=== PATIENT | male | born 1950 | race Caucasian/White ===

== ENCOUNTER 2017-01-11 11:47 | Inpatient (IN) | payer OTHER ==
[2017-01-11] MEDS ORDERED: ASPIRIN PO STA (12:32)
[2017-01-11] MEDS ORDERED: CARDIZEM IV ONE (12:33)
[2017-01-11 12:38] LABS: MANUAL DIFF NEEDED? NO
--- NOTE | 2017-01-11 12:39 | EKG Report ---
Test Performed on : 01/11/2017 12:27:29 PM Test Reason : CHEST PAIN Blood Pressure : / mmHG Vent. Rate : 131 BPM Atrial Rate : 136 BPM P-R Int : 000 ms QRS Dur : 092 ms QT Int : 330 ms P-R-T Axes : 000 032 032 degrees QTc Int : 487 ms Atrial fibrillation. with rapid ventricular response. Abnormal ECG When compared with ECG of 20-OCT-2016 05:37, Atrial fibrillation. has replaced Electronic atrial pacemaker Vent. rate has increased BY 71 BPM Unconfirmed Result
[2017-01-11 12:41] LABS: BASO% 0.4 % (0.0-0.8); EOS# 0.06 X1000 (0.0-0.7); EOS% 1.1 % (0.0-10.0); HEMATOCRIT 45.6 % (42.0-52.0); HEMOGLOBIN 14.8 g/dL (14.0-18.0); IMM GRAN# 0.01 X1000 (0.0-0.04); IMM GRAN% 0.2 % (0.0-0.5); LYMPH# 1.51 X1000 (1.2-3.4); LYMPH% 26.8 % (20.5-51.1); MCH 24.8 PG (27-31); MCHC 32.5 g/dL (33-37); MCV 76.4 FL (81-99); MONO# 0.59 X1000 (0.11-0.59); MONO% 10.5 % (1.7-9.3); MPV 9.9 FL (7.4-10.4); PLT 197 X1000 (130-400); RBC 5.97 XMIL (4.7-6.1)
[2017-01-11] MEDS ORDERED: NS 1,000 ML ONE (12:43)
[2017-01-11] MEDS ORDERED: NS 500 ML IV ONE ×2 (12:57→13:27)
[2017-01-11 12:59] LABS: AGAP 12; ALBUMIN 4.4 g/dL (3.5-5.0); ALKALINE PHOSPHATASE 86 U/L (32-122); BUN 7 mg/dL (8-22); CALCIUM 9.6 mg/dL (8.8-10.2); CHLORIDE 99 mmol/L (98-107); CK PROFILE 140 U/L (24-204); COSMO 281; GOT 24 U/L (10-34); GPT 19 U/L (10-44); POTASSIUM 3.2 mmol/L (3.5-5.1); SODIUM 140 mmol/L (136-145); TCO2 30 mmol/L (25-35); TOTAL PROTEIN 6.9 g/dL (6.3-8.3)
[2017-01-11] MEDS ORDERED: DUONEB (A & A) ONE (13:01)
[2017-01-11 13:03] LABS: INR 0.99 (0.86-1.15); PROTIME 13.4 Seconds (12.1-15.5)
[2017-01-11 13:04] LABS: PTT PL 30.7 Seconds (22.6-43.9)
--- NOTE | 2017-01-11 13:16 | PROVIDER DOCUMENTATION ---
HPI-Respiratory General - General Chief Complaint: Shortness of Breath Stated Complaint: SOB Time Seen by Provider: 01/11/17 12:32 Source: patient Allergies/Adverse Reactions: Patient Allergies Allergy/AdvReac Type Severity Reaction Status Date / Time Penicillins Allergy Mild RASH Verified 10/20/16 05:28 codeine Allergy NAUSEA/VOMI Verified 10/20/16 05:28 TING Home Medications: Home Medication List Medication Instructions Recorded Confirmed Last Taken Type Amiodarone HCl 200 mg PO QHS 03/19/14 10/20/16 08/20/15 History 200 Metoprolol Succinate E.r. [Toprol 50 mg PO BID 03/19/14 10/20/16 08/20/15 09:00 History Xl] Losartan [Cozaar] 25 mg PO DAILY 09/07/14 10/20/16 08/20/15 09:00 History Rivaroxaban [Xarelto] 20 mg PO DAILY #30 tablet 09/10/14 10/20/16 08/20/15 09: 00 Rx Aspirin [Aspirin EC] 81 mg PO DAILY 07/27/15 10/20/16 Unknown History Clonidine HCl 0.1 mg PO QHS 07/27/15 10/20/16 08/20/15 09:00 History Fexofenadine [Meryl] 180 mg PO DAILY 07/27/15 10/20/16 08/20/15 09:00 History Pravastatin Sodium 80 mg PO HS 07/27/15 10/20/16 Unknown History Trazodone HCl 100 mg PO HS 07/27/15 10/20/16 08/20/15 21:00 History 50 Ubidecarenone/[place]-3/Vit E [Co 1 tab PO DAILY 07/27/15 10/20/16 08/20/15 History Q-10-Vit E-Fish Oil Sfgl] 50 Multivitamins/Minerals [Centrum 1 each PO DAILY 08/21/15 10/20/16 Unknown History Silver] Tamsulosin [Flomax] 0.4 mg PO QHS 08/21/15 10/20/16 08/20/15 09:00 History Doxycycline [Vibramycin] 100 mg PO BID #14 tablet 10/20/16 Unknown Rx - History of Present Illness-Resp Nature of Presenting Problem: patient is a 66 y/o M that presents with 3 weeks of shortness of breath that has worsened over the past few days. He does have a cough but no fever/chills. Denies n/v/d or chest pain. Quality of Pain: reports: tightness Severity in ED: reports: moderate Onset/Duration: reports: gradual, other (3 weeks) Timing: reports: still present, constant Context: denies: sports/exercise, aspiration/choking Cough Quality/Degree: reports: moderate, dry cough Episode Frequency: chronic episodes Current Respiratory Medication Therapy: Initiated see nurses note Modifying Factors: worse with: exertion, coughing Associated Symptoms: reports: cough, shortness of breath, short of breath. denies: dizziness, fever/chills, flu-like symptoms, nasal congestion, nasal drainage, wheezing Similar Symptoms Previously?: Yes Recently seen or treated by another doctor?: No Review of Systems - Adult - REVIEW OF SYSTEMS - ADULT Constitutional: denies: chills, fever Eyes: denies: decreased vision, blurred vision, double vision Ears, Nose, Mouth & Throat: denies: ear pain, throat pain, throat swelling Cardiovascular: denies: chest pain, palpitations, syncope Respiratory: reports: cough, shortness of breath. denies: wheezing Gastrointestinal: denies: abdominal pain, diarrhea, nausea, vomiting Genitourinary: reports: no symptoms reported Musculoskeletal: reports: no symptoms reported Integumentary: reports: no symptoms reported Neurological: reports: no symptoms reported Psychiatric: reports: no symptoms reported Endocrine: reports: no symptoms reported Hematologic/Lymphatic: reports: no symptoms reported Allergic/Immunologic: reports: no symptoms reported All Other Systems: Reviewed and Negative Past History - Adult - PAST MEDICAL HISTORY-ADULT Review of Records: reports: Nursing Assessment Review, Medications Reviewed Cardiovascular: reports: cardiac disease, arrhythmia, CAD, HTN, hyperlipidemia, [place] Respiratory: reports: COPD Musculoskeletal: reports: chronic pain Psychiatric: reports: anxiety - PRIOR SURGERIES/PROCEDURES Surgical/Procedure History: reports: appendectomy, cardiac stent (x2 in 1989), other (gastric) - IMMUNIZATION STATUS Childhood Immunizations: UTD Flu Vaccine: UTD - FAMILY HISTORY Family History: reviewed, not pertinent - SOCIAL HISTORY Smoking: cigarettes, greater than 1 pack/day Provider spent 3-5 mins advising pt. on dangers of tobacco.: Discussed manners to quit use, and f/u contacts for add'l counseling. Living Situation: family Physical Exam-General - PHYSICAL EXAM-ADULT Initial Vital Signs Reviewed: Yes - CONSTITUTIONAL General Appearance: alert, mild distress - EYES Eyes: PERRL/EOMI, pink conjunctivae - HEAD, EARS, NOSE, MOUTH & THROAT HENMT: normocephalic/atraumatic, moist mucous membranes, normal ENT inspection - NECK Neck: non-tender, full range of motion, normal inspection - RESPIRATORY Respiratory: no respiratory distress, no accessory muscle use, crackles (right nathalie), rales (left lung), rhonchi (right lung) - CARDIOVASCULAR Cardiovascular: no JVD, irregularly irregular - GASTROINTESTINAL (ABDOMEN) Abdominal Exam: normal bowel sounds, non tender, soft, no organomegaly, no pulsatile mass - MUSCULOSKELETAL Extremity: normal capillary refill, pelvis stable, pedal edema (3 plus) - SKIN Integumentary: normal color, warm/dry - NEUROLOGIC Neurologic: grossly normal, no motor/sensory deficits - PSYCHIATRIC Psych/Mental Status: normal mood/affect, normal thought content, normal thought process, oriented x 3 Progress - PLAN OF CARE/RESULTS Progress/Plan/Lab Results: plan of care-labs, cxr, ekg, breathing tx, abgs, meds Vital Signs Temp Pulse Resp BP Pulse Ox 01/11/17 14:25 83 22 87/51 97 01/11/17 14:21 83 20 91/62 97 01/11/17 14:15 88 15 87/70 97 01/11/17 14:10 81 23 87/62 96 01/11/17 14:05 70 15 98/55 96 01/11/17 14:00 80 20 89/60 94 L 01/11/17 13:55 86 23 89/56 01/11/17 13:50 88 19 90/73 97 01/11/17 13:21 69 17 104/65 01/11/17 13:10 88 21 91/52 01/11/17 13:05 70 21 98/64 01/11/17 13:01 85 13 105/63 95 01/11/17 12:55 80 22 130/81 93 L 01/11/17 12:45 97 H 25 H 108/82 01/11/17 12:40 78 23 116/79 01/11/17 12:36 89 21 92/75 94 L 01/11/17 12:33 70 21 89/73 93 L 01/11/17 12:32 79 18 113/77 93 L 01/11/17 12:16 87 21 115/66 96 01/11/17 11:56 98 F 95 H 19 129/89 95 Penicillins Allergy (Mild, Verified 10/20/16 05:28) RASH codeine Allergy (Verified 10/20/16 05:28) NAUSEA/VOMITING Amiodarone HCl 200 mg PO QHS 03/19/14 Metoprolol Succinate E.r. [Toprol Xl] 50 mg PO BID 03/19/14 Losartan [Cozaar] 25 mg PO DAILY 09/07/14 Rivaroxaban [Xarelto] 20 mg PO DAILY #30 tablet 09/10/14 Aspirin [Aspirin EC] 81 mg PO DAILY 07/27/15 Clonidine HCl 0.1 mg PO QHS 07/27/15 Fexofenadine [Meryl] 180 mg PO DAILY 07/27/15 Pravastatin Sodium 80 mg PO HS 07/27/15 Trazodone HCl 100 mg PO HS 07/27/15 Ubidecarenone/[place]-3/Vit E [Co Q-10-Vit E-Fish Oil Sfgl] 1 tab PO DAILY Multivitamins/Minerals [Centrum Silver] 1 each PO DAILY 08/21/15 Tamsulosin [Flomax] 0.4 mg PO QHS 08/21/15 Doxycycline [Vibramycin] 100 mg PO BID #14 tablet 10/20/16 Laboratory 01/11/17 01/11/17 01/11/17 12:51 12:30 12:30 WBC 5.64 RBC 5.97 Hgb 14.8 Hct 45.6 MCV 76.4 L MCH 24.8 L MCHC 32.5 L RDW Std Deviation 16.4 H Plt Count 197 MPV 9.9 Immature Gran % (Auto) 0.2 Neut % (Auto) 61.0 Lymph % (Auto) 26.8 Karnes % (Auto) 10.5 H Eos % (Auto) 1.1 Baso % (Auto) 0.4 Immature Gran # (Auto) 0.01 Neut # (Auto) 3.45 Lymph # (Auto) 1.51 Karnes # (Auto) 0.59 Eos # (Auto) 0.06 Baso # (Auto) 0.02 PT 13.4 INR 0.99 APTT (Factor Assay) 30.7 D-Dimer 0.38 Specimen Type ARTERIAL Sample Site R RADIAL pH 7.50 H pCO2 39 pO2 68 HCO3 30.0 H Base Excess 6.7 H Oxyhemoglobin 92.5 L ABG O2 Sat (Calculated) 19.2 ABG O2 Saturation 95.0 ABG Carboxyhemoglobin 2.20 ABG Methemoglobin 0.5 Charbel Test YES A-a O2 Difference 33.0 Total Hemoglobin 14.8 Lactate 1.30 Blood Gas Modality ROOM AIR FiO2 % 21.0 Sodium Potassium Chloride Carbon Dioxide Anion Gap BUN Creatinine Estimated GFR/1.73 m2 BUN/Creatinine Ratio Glucose Calculated Osmolality Calcium Magnesium Total Bilirubin AST ALT Alkaline Phosphatase Creatine Kinase Troponin T Qjb-L-Engsxbvewqh Pept Total Protein Albumin Globulin Albumin/Globulin Ratio 01/11/17 01/11/17 01/11/17 12:30 12:30 12:30 WBC RBC Hgb Hct MCV MCH MCHC RDW Std Deviation Plt Count MPV Immature Gran % (Auto) Neut % (Auto) Lymph % (Auto) Karnes % (Auto) Eos % (Auto) Baso % (Auto) Immature Gran # (Auto) Neut # (Auto) Lymph # (Auto) Karnes # (Auto) Eos # (Auto) Baso # (Auto) PT INR APTT (Factor Assay) D-Dimer Specimen Type Sample Site pH pCO2 pO2 HCO3 Base Excess Oxyhemoglobin ABG O2 Sat (Calculated) ABG O2 Saturation ABG Carboxyhemoglobin ABG Methemoglobin Charbel Test A-a O2 Difference Total Hemoglobin Lactate Blood Gas Modality FiO2 % Sodium 140 Potassium 3.2 L Chloride 99 Carbon Dioxide 30 Anion Gap 12 BUN 7 L Creatinine 0.7 Estimated GFR/1.73 m2 > 60 BUN/Creatinine Ratio 10 Glucose 167 H Calculated Osmolality 281 Calcium 9.6 Magnesium 2.0 Total Bilirubin 0.90 AST 24 ALT 19 Alkaline Phosphatase 86 Creatine Kinase 140 Troponin T < 0.010 Cib-C-Nycfrwttsrf Pept 417 H Total Protein 6.9 Albumin 4.4 Globulin 3.0 Albumin/Globulin Ratio 2.0 Orders Category Date Time Status Cardiac Monitoring DIRECTED Care 01/11/17 12:33 Active Oxygen Therapy- ED Nursing DIRECTED Care 01/11/17 12:33 Active Saline Loc NOW Care 01/11/17 12:33 Active CHEST-2 VIEWS [RAD] Stat Exams 01/11/17 12:33 Completed ABG [RESP] Routine Lab 01/11/17 12:51 Completed CBC WITH ELECTRONIC DIFF [HEME] Stat Lab 01/11/17 12:30 Completed CK PROFILE [SP CHEM] Stat Lab 01/11/17 12:30 Completed COMPREHENSIVE METABOLIC PANEL [CHEM] Stat Lab 01/11/17 12:30 Com[address] D-DIMER PL [COAG] Stat Lab 01/11/17 12:30 Completed MAGNESIUM [CHEM] Stat Lab 01/11/17 12:30 Completed PRO B-NATRIURETIC PEPTIDE Stat Lab 01/11/17 12:30 Completed [address]IME WITH INR PL [COAG] Stat Lab 01/11/17 12:[address] [COAG] Stat Lab 01/11/17 12:30 Completed TROPONIN T Stat Lab 01/11/17 12:30 Completed 0.9% Sodium Chloride Inj [Ns] 1,000 ml Med 01/11/17 12:43 Discontinued .ROUTE As Directed 0.9% Sodium Chloride Inj [Ns] 500 ml Med 01/11/17 12:57 Discontinued IV 999 mls/hr 0.9% Sodium Chloride Inj [Ns] 500 ml Med 01/11/17 13:27 Discontinued IV 999 mls/hr Albuterol 2.5MG/Ipratrop 0.5MG [Duoneb (A & A)] Med 01/11/17 13:01 Discontinued 3 ml .ROUTE .STK-MED ONE Albuterol 2.5MG/Ipratrop 0.5MG [Duoneb (A & A)] Med 01/11/17 13:18 Discontinued 3 ml INH NOW ONE Aspirin Med 01/11/17 12:32 Discontinued 325 mg PO STAT STA Diltiazem [Cardizem] Med 01/11/17 12:33 Discontinued 10 mg IV NOW ONE Aerosol Treatments Routine Oth 01/11/17 13:18 Completed Aerosol Treatments Stat Oth 01/11/17 13:18 Completed EKG [EKG] Stat Ther 01/11/17 12:33 Draft - EKG 1 Time of EKG reading by physician:: 12:27 EKG Read and Signed by:: Kendell Owen EKG Interpretation (*Must complete 3 of following elements*): Abnormal Rate: 131 Rhythm: a-fib with rvr QRS: normal ST Wave: non-specific ST changes - XRAY 1 XRAY Study: Chest Impression: Abnormal XRAY Interpretation: stable - CONSULTS/PCP/HOSPITALIST Notification #1 *Consult/PCP/Hospitalist*: (hospitalist) Time Discussed: 15:42 Consult Disposition: Will see in ED, Admit Departure - Departure Time of Disposition Order: 15:43 DIAGNOSIS: Atrial fibrillation with RVR, CHF (congestive heart failure), COPD (chronic obstructive pulmonary disease) Disposition: ADMITTED INPATIENT 09 Certified Medical Emergency: Emergent Condition: Stable Referrals: None,PCP [Primary Care Provider] - - Critical Care Note Total Time (mins): 45 Critical Care Statement: This patient required my direct personal management to treat or rule out processes, the absence of which, could potentiallly result in sudden, clinically significant life or limb threatening deterioration. Attestation - Scribe Verification/Attestation Scribe:: Mika Washington Acting as Scribe for:: Kendell Owen Scribe documention review:: This chart was documented by a scribe and accurately reflects the service the provider performed and the decisions made by the provider. Physician Attestation - Physician Attestation I, the provider, attest to the following statement:: Kendell Owen Physician documentation Attestation:: This documentation recorded by the scribe accurately reflects the service I personally performed and the decisions made by me.
[2017-01-11] MEDS ORDERED: DUONEB (A & A) INH ONE (13:18)
[2017-01-11 13:31] LABS: BE 6.7 mmoll (-3.0-3.0); BLOOD TYPE ARTERIAL; DRAW SITE R RADIAL; METHB 0.5 % (0.0-1.5); O2(CT) 19.2 mL/dL (15.0-23.0); PCO2(98.6) 39 mmHg (35-45); PO2(98.6) 68 mmHg (60-100); SAMPLE BLOOD; THB 14.8 g/dL (11.5-17.4)
[2017-01-11 13:36] LABS: ALLEN TEST YES; MODALITY ROOM AIR
--- NOTE | 2017-01-11 14:32 | Diag Imaging Result Document ---
PROCEDURE NAME: CHEST-2 VIEWS - 01/11/2017 FRONTAL AND LATERAL CHEST, 2 VIEWS. COMPARISON: Compared to 10/20/2016. FINDINGS: The lungs are hyperexpanded. Mild increased AP diameter to the chest. Patient has a left-sided pacemaker. The heart is mildly prominent. The vessels are not distended. No consolidation. No pleural effusions. IMPRESSION: Stable chest.
[2017-01-11] MEDS ORDERED: NEO-SYNEPHRINE 50 MG in NS 250 ML IV SCH ×2 (16:00→17:29)
[2017-01-11] MEDS ORDERED: KLOR-CON PO ONE (16:10)
[2017-01-11] MEDS ORDERED: CARDIZEM 100 MG/NS 100 ML IV SCH (16:15)
--- NOTE | 2017-01-11 17:11 | HISTORY AND PHYSICAL ---
CHIEF COMPLAINT: Shortness of breath and palpitations. HISTORY OF PRESENTING ILLNESS: This is a 66-year-old male who presented to [facility] stating he had a 3-week history of worsening shortness of breath. Began having some palpitations this morning and has had a productive cough with yellow sputum. On arrival to the emergency room his EKG showed atrial fibrillation with RVR at 131 which is new for this patient. He received Cardizem 10 mg IV x1, 2 L of normal saline. When he arrived to the emergency room his blood pressure was 129/89 but approximately an hour and a half after arriving his blood pressure dropped to 89/73, at 3:25 after receiving the 2 L of normal saline dropped again to 80/54 with a controlled rate of atrial fibrillation at 75. When I saw this patient he had a heart rate of 129 and a blood pressure of 111/73. He is going to be admitted for further evaluation and treatment to our intensive care unit. We are starting him on a Cardizem drip and Kash-Synephrine. PAST MEDICAL HISTORY: COPD, anxiety, coronary artery disease, hypertension, hyperlipidemia, and a previous PR. PAST SURGICAL HISTORY: Appendectomy and heart stents x2. FAMILY HISTORY: Noncontributory. SOCIAL HISTORY: Currently lives with family. Is a 1 pack a day smoker and has been so for the past 50 years. Denied any alcohol or illicit drug use. ALLERGIES: Penicillin and codeine. HOME MEDICATIONS: We will obtain a current list and then restart as appropriate. LABORATORY DATA: Showed a white blood cell count of 5.64, hemoglobin 14.8, hematocrit 45.6, platelets 197,000. PT and INR of 13.4 and 0.99 with a D-dimer of 0.38. ABG with a pH of 7.50, pCO2 of 39, PO2 68, and bicarb of 30. Sodium of 140, potassium 3.2, chloride 99 , CO2 30, BUN of 7, creatinine 0.7, glucose 167. First set of cardiac enzymes showed a creatine kinase of 140 with a troponin of less than 0.010. ProBNP was 417. Chest x-ray showed a stable chest. EKG on arrival showed atrial fibrillation with RVR at 131. REVIEW OF SYSTEMS: He denied any fever, chills, blurred vision, dizziness. He denied any chest pain. He has had a productive cough of yellow sputum, shortness of breath and palpitation. Denied any abdominal pain, constipation, diarrhea, or burning or hurting with urination. PHYSICAL EXAMINATION: VITAL SIGNS: On arrival a temperature of 98 degrees, pulse was 95, respirations 19, blood pressure 129/89, saturating 95%. He about an hour and a half after arriving after receiving some Cardizem for his RVR dropped his pressure to 89/73. Received 2 L boluses but even after that continued to be hypotensive and continued to be in atrial fibrillation with RVR with a rate of 129 when seen by hospitalist. GENERAL: This is a 66-year-old male who is sitting on the side of the bed and answers questions appropriately. HEENT: Normocephalic and atraumatic. Pupils are equal, round, reactive to light. Extraocular movements are intact. Oropharynx and nares are clear. NECK: Supple. LUNGS: Clear to auscultation bilaterally with equal lung expansion and chest wall movement. HEART: With irregular rate and rhythm. No murmurs, rubs, or gallops. ABDOMEN: Soft, nontender, nondistended. Bowel sounds are present x4 quadrants. EXTREMITIES: No clubbing, cyanosis, or edema. NEUROLOGICAL: The cranial nerves 2-12 are grossly intact. ASSESSMENT: 1. Atrial fibrillation with rapid ventricular response new onset. 2. Hypokalemia. 3. Hypotension. 4. Tobacco abuse. PLAN: He is being admitted to the intensive care unit at [facility]. Placed on telemetry. Healthy heart diet. Serial cardiac enzymes. Continue normal saline at 125. Again he is on a Cardizem drip to keep heart rate less than 100, is on a Kash- Synephrine drip to keep systolic blood pressure greater than 100, Zofran 4 mg IV q.4, Tylenol 650 p.o. q.6 hours p.r.n. We will verify his home medications. Once his heart rate becomes more controlled will obtain an echocardiogram. We may need cardiology consult but will see in the a.m. how he is doing and reevaluate then and will recheck a CBC and a CMP in the a.m. Dictated by IMAN Alvarenga for Ruben Fitzgerald MD pt examined, in afib with rvr, rate controlled on cardizem, may need institution of pressors, will add digoxin, he has been amiodarone previously and xarelto, recent echo in 10/13 was normal so will not repeat, may need ischemic work-up regardless, has failed standard therapay so we will get cardiology opinion on tx and diagnosis APENOT MTDD
[2017-01-11] MEDS ORDERED: ZOFRAN IV PRN (17:23)
[2017-01-11] MEDS: NS 1,000 ML IV SCH (17:41)
[2017-01-11] MEDS ORDERED: SODIUM CHLORIDE 0.9% 10 ML ONE (19:31)
[2017-01-11] MEDS: LANOXIN IV SCH (19:48)
[2017-01-11] MEDS: XOPENEX NEB INH PRN ×2 (20:15→23:35)
[2017-01-11] MEDS ORDERED: CORDARONE PO ONE (22:23)
[2017-01-11] MEDS: DESYREL PO SCH (22:40)
[2017-01-12] MEDS: LANOXIN IV SCH (00:35)
[2017-01-12] MEDS: NS 1,000 ML IV SCH (01:15)
[2017-01-12 02:12] LABS: MANUAL DIFF NEEDED? NO
[2017-01-12 02:49] LABS: BASO% 0.5 % (0.0-0.8); EOS# 0.12 X1000 (0.0-0.7); HEMATOCRIT 40.3 % (42.0-52.0); HEMOGLOBIN 12.7 g/dL (14.0-18.0); IMM GRAN# 0.01 X1000 (0.0-0.04); IMM GRAN% 0.2 % (0.0-0.5); LYMPH# 2.31 X1000 (1.2-3.4); LYMPH% 39.1 % (20.5-51.1); MCH 24.7 PG (27-31); MCHC 31.5 g/dL (33-37); MCV 78.3 FL (81-99); MONO# 0.61 X1000 (0.11-0.59); MONO% 10.3 % (1.7-9.3); MPV 10.6 FL (7.4-10.4); NEUT% 47.9 % (42.2-75.2); PLT 177 X1000 (130-400); RBC 5.15 XMIL (4.7-6.1)
[2017-01-12 03:09] LABS: AGAP 9; ALBUMIN 3.8 g/dL (3.5-5.0); ALKALINE PHOSPHATASE 71 U/L (32-122); BUN 9 mg/dL (8-22); CALCIUM 8.8 mg/dL (8.8-10.2); CHLORIDE 104 mmol/L (98-107); COSMO 280; GOT 18 U/L (10-34); GPT 15 U/L (10-44); POTASSIUM 3.1 mmol/L (3.5-5.1); SODIUM 141 mmol/L (136-145); TCO2 28 mmol/L (25-35); TOTAL PROTEIN 5.5 g/dL (6.3-8.3)
--- NOTE | 2017-01-12 06:23 | EKG Report ---
Test Performed on : 01/11/2017 10:06:16 PM Test Reason : verify rythm change Blood Pressure : / mmHG Vent. Rate : 065 BPM Atrial Rate : 065 BPM P-R Int : 150 ms QRS Dur : 100 ms QT Int : 426 ms P-R-T Axes : 063 061 052 degrees QTc Int : 443 ms Normal sinus rhythm. Normal ECG When compared with ECG of 11-JAN-2017 12:27, (Unconfirmed) Sinus rhythm. has replaced Atrial fibrillation. Vent. rate has decreased BY 66 BPM Unconfirmed Result
[2017-01-12] MEDS: XOPENEX NEB INH PRN ×2 (07:41→17:22)
[2017-01-12] MEDS ORDERED: CORDARONE PO SCH (09:00)
[2017-01-12] MEDS ORDERED: KLOR-CON PO ONE (09:39)
[2017-01-12] MEDS ORDERED: SUBOXONE 8 MG/2 MG SL ONE (10:37)
[2017-01-12] MEDS: LASIX IV SCH ×2 (11:02→22:56)
[2017-01-12] MEDS: CARDIZEM PO SCH ×3 (11:02→21:13)
--- NOTE | 2017-01-12 11:14 | PROGRESS NOTE ---
DATE: 01/12/2017 OBJECTIVE: Blood pressure 133/68, heart rate 72, respiratory rate 18, temperature 98.9 degrees, 93% on 2 L.Cardiovascular: Regular rate and rhythm. Pulmonary: Bilateral breath sounds. Clear to auscultation. GI: Soft, nontender, nondistended. Bowel sounds are positive. Extremities: No clubbing or cyanosis. Lymphatics: No peripheral edema. Neurological: Nonfocal. LABORATORY DATA: Hemoglobin and hematocrit 12 and 40, platelets 177,000 white count is normal. Chemistry: Potassium still low 3.1. TSH is low at 0.03. PROBLEM LIST: 1. Atrial fibrillation with rapid ventricular response. He has previously been on amiodarone and metoprolol. Amiodarone dose was decreased supposedly per Dr. Cowan for altered mentation which may have induced his atrial fibrillation with but he also has some thyroid dysfunction now so amiodarone may be not the best choice. I of course defer to my esteemed colleagues in the Cardiology service but I am going to hold his amiodarone for right now and just leave him on the Cardizem p.o. because that seems to have controlled him. He also did get 1 dose of digoxin and again not repeating his echo because he had a recent echo which showed an intact EF. 2. Volume overload. We will resume his Lasix and stop his fluids. 3. Possible hyperthyroidism. We will continue to monitor that. A free T4 has been ordered. We will order other tests accordingly. 4. Hypokalemia. Will supplement and also monitor his magnesium levels. 5. Disposition: He is now converted to sinus. If he is rhythm controlled and stable may be able to get him home pending recommendations per Cardiology.
--- NOTE | 2017-01-12 11:28 | Diag Imaging Result Document ---
PROCEDURE NAME: CHEST-PORTABLE - 01/12/2017 CHEST, SINGLE VIEW: INDICATION: Dyspnea. COMPARISON: 01/11/2017. FINDINGS: There is cardiomegaly with a left transvenous pacemaker. The pulmonary vasculature is not congested. No acute infiltrates or effusions are identified. IMPRESSION: 1. Cardiomegaly. 2. No acute infiltrates.
[2017-01-12] MEDS: XARELTO PO SCH (16:16)
[2017-01-12] MEDS ORDERED: TOPROL XL PO SCH (21:00)
[2017-01-12] MEDS: DESYREL PO SCH (21:13)
[2017-01-12] MEDS: PRAVACHOL PO SCH (21:13)
--- NOTE | 2017-01-12 21:50 | CONSULTATION ---
DATE OF CONSULTATION: 01/12/2017 CONSULTATION REQUESTED BY: Hospitalist Service. REASON FOR CONSULTATION: Atrial fibrillation, irregular heartbeat, shortness of breath. HISTORY OF PRESENT ILLNESS: A 66-year-old male presented to the emergency department on 01/11/2017. At that time he reported increasing exertional dyspnea that had been going on for a period of 3 weeks. He also noted some cough. He reported no chest pain, nausea, vomiting. He admitted to having some swelling of the legs. At the time of initial presentation, an electrocardiogram showed atrial fibrillation with a rapid ventricular response. Rate was in the 130 range. Subsequently overnight he was given diltiazem, albuterol. His blood pressure dropped. He was given Kash-Synephrine. He was taken to the ICU. Eventually over there blood pressure and heart rate settled down. Subsequent EKG done at 10 p.m. on 01/11/2017 showed that he converted back to sinus rhythm. At the present time he is in sinus rhythm and he is feeling basically back to his normal self. He is not having any nausea. No discomfort in the chest. They have done a total of 4 cardiac enzymes and troponin beginning at 12:30 on 01/11/2017, ending at 10 a.m. this morning. All of them are negative. Pro BNP was minimally elevated at 417. A chest x-ray done in the emergency department showed no acute changes. The subsequent chest x-ray done today in the morning shows no acute infiltrates and cardiomegaly. His thyroid level is off. Free T4 is 2.11, and his TSH is 0.03, suggesting that he may be in a hyperthyroid state. The patient's past history is extensive. He normally follows with Dr. Víctor Aviles in [place] and also with Dr. Willy Stephenson in [place]. He lives in [place]. He has been diagnosed with coronary heart disease. He had a stent in 1992. He had another stent in 2003. He has been followed periodically. He had a heart catheterization in 2013 I believe indicating that his right coronary artery is totally occluded in a very proximal portion. He has had a PET scan done in October 2016 indicating ischemia of the basal inferior segment, basal inferoseptal segment, mid inferior segment, mid inferoseptal segment, apical inferior segment, and apical septal segment, consistent with a totally occluded right coronary artery with collateralization. His ejection fraction by PET scan was normal at 63%. He also had an echocardiogram done at this facility when he was admitted on 10/20/2016. At that time he presented with chest pains. The echocardiogram, which I actually read, indicated excellent left ventricular systolic function, no evidence of any valvular abnormality. His history is positive also for implantation of AICD which is being monitored by the [facility]. He has had previous pulmonary embolism in the past. He has varicose veins. He had gastrointestinal bleeding. He has degenerative joint disease. The patient has chronic somatic pains. Surgical history is positive for prior series of back surgeries. He has had four total with two spinal fusions. He has had left total knee arthroplasty. He has had hernia repair, tonsillectomy. HOME MEDICATIONS: Home medications at the time of the present admission are as follows: 1. Buprenorphine/naloxone (Suboxone) 8/2 twice a day. 2. Amiodarone 200 at bedtime. 3. Furosemide 80 daily. 4. Escitalopram 20 mg daily. 5. CoQ10 with vitamin E and fish oil daily. 6. Clonidine 0.1 twice a day. 7. Aspirin 81 mg daily. 8. Multivitamin daily. 9. Pravastatin 80 mg at bedtime. 10.Metoprolol XL 50 twice a day. 11.Xarelto 20 daily. 12.Trazodone 100 at bedtime. 13.Losartan 25 mg daily. ALLERGIES: Penicillin and codeine. REVIEW OF SYSTEMS: Review of systems, beyond what I have reported, is noncontributory. Multiple systems were checked. SOCIAL HISTORY: He is . He has no children. He smokes he says 5 cigarettes a day. He is a long-term smoker. Not a drinker. FAMILY HISTORY: Family history is really noncontributory for the purposes of this admission. PHYSICAL EXAMINATION: Vital signs: Blood pressure is 120/62. Temperature 98.1. Pulse 68. Respirations 12. General: He is awake, alert and oriented. Sitting upright in no distress. HEENT: Unremarkable. Chest: Clear to auscultation and percussion. He has some rhonchi, scattered end-expiratory wheezes also. Cardiovascular: Heart sounds are regular and rhythmic. I do not hear any definite gallop or murmur. Abdomen: Obese, nontender. No masses. No hepatomegaly. Extremities: Show good pulses. Slight varicose veins in the ankles. Trace edema. Neurologic: He moves all four extremities. He has no obvious deficits. IMPRESSION: 1. Patient who presents with paroxysmal atrial fibrillation that appears to be symptomatic. 2. Congestive heart failure. This is acute diastolic dysfunction. 3. Chronic obstructive pulmonary disease, current smoker. 4. Chronic somatic pains, status post multiple back surgeries, knee surgery. 5. History of hypertension. 6. History of hyperlipidemia. 7. Prior stents to left anterior descending and right coronary artery with total occlusion of right coronary artery. RECOMMENDATIONS: At this point in time, the patient appears to be stable from a cardiac viewpoint. He appears to be hyperthyroid. His TSH is low and his free T4 is elevated. I agree with putting on hold his amiodarone. I would allow him to go home probably in the next day or two and discuss further antiarrhythmic therapy with his established roll on worker, Dr. Aviles, and Dr. Reyes, who is the plsql developer involved in his care. Thank you very much for the opportunity to participate in his evaluation.
[2017-01-13] MEDS: CARDIZEM PO SCH ×3 (02:11→13:13)
[2017-01-13] MEDS: XOPENEX NEB INH PRN ×2 (04:35→20:27)
[2017-01-13 06:47] LABS: HEMOGLOBIN 12.4 g/dL (14.0-18.0); MCH 24.4 PG (27-31); MCV 78.6 FL (81-99); MPV 10.8 FL (7.4-10.4); RBC 5.09 XMIL (4.7-6.1)
[2017-01-13 07:10] LABS: AGAP 10; BUN 8 mg/dL (8-22); CALCIUM 9.2 mg/dL (8.8-10.2); CHLORIDE 103 mmol/L (98-107); COSMO 281; POTASSIUM 3.2 mmol/L (3.5-5.1); SODIUM 142 mmol/L (136-145); TCO2 28 mmol/L (25-35)
[2017-01-13] MEDS: COZAAR PO SCH (08:49)
[2017-01-13] MEDS: COENZYME Q10 PO SCH (08:50)
[2017-01-13] MEDS: ASPIRIN EC PO SCH (08:50)
[2017-01-13] MEDS: FISH OIL CONCENTRATE PO SCH (08:50)
[2017-01-13] MEDS: MULTI-VITAMIN PO SCH (08:50)
[2017-01-13] MEDS: LEXAPRO PO SCH (08:50)
[2017-01-13] MEDS: VITAMIN E PO SCH (08:52)
[2017-01-13] MEDS ORDERED: KLOR-CON PO ONE (13:01)
[2017-01-13] MEDS: TAPAZOLE PO SCH (13:13)
[2017-01-13] MEDS ORDERED: LOPRESSOR PO SCH (14:00)
--- NOTE | 2017-01-13 14:21 | PROGRESS NOTE ---
DATE: 01/13/2017 SUBJECTIVE: The patient looks well. No major complaints. OBJECTIVE: Vital Signs: Blood pressure 162/69, heart rate 65, respiratory rate 20, temperature 98.2% with oxygen saturation 95% on room air. Cardiovascular: Regular rate and rhythm. Pulmonary: Bilateral breath sounds. Clear to auscultation. GI: Soft, nontender, nondistended. Bowel sounds are positive. Extremity exam: No clubbing or cyanosis. Lymphatic exam: No peripheral edema. Neurological exam: Nonfocal. LABORATORY DATA: His free T4 is high at 2.11 and his TSH is 0.03. Potassium is 3.2. PROBLEM LIST: 1. Atrial fibrillation with rapid ventricular response. He is rate controlled, rhythm controlled now. I agree with Dr. Grullon. Lopressor would be a better option. We had him on Cardizem because that is what had controlled him previously. He has been on Toprol before, so I think we are just going to put him back on that, although to be fair he failed that treatment, but in any case it is probably related to the amiodarone at this point. He is hyperthyroid so we cannot use the amiodarone and we will likely have to treat his hyperthyroidism and follow. He may need an RIAU test so, we will continue to follow that. I think he will need follow up with endocrine as an outpatient. We will arrange follow up from that standpoint. 2. Hyperthyroidism. We will check thyroid receptor antibodies and I think we will need to do a thyroid scan at some point, but in any case we will continue to follow. Possibly go home tomorrow with close follow up with cardiology and endocrine. We will continue to monitor very closely.
[2017-01-13] MEDS: XARELTO PO SCH (16:58)
[2017-01-13] MEDS: TOPROL XL PO SCH (20:16)
[2017-01-13] MEDS: DESYREL PO SCH (20:16)
[2017-01-13] MEDS: PRAVACHOL PO SCH (20:16)
[2017-01-13] MEDS ORDERED: TAPAZOLE PO SCH (21:00)
[2017-01-13] MEDS ORDERED: APRESOLINE IV PRN (22:39)
[2017-01-14] MEDS: TYLENOL PO PRN ×2 (05:43→10:48)
[2017-01-14] MEDS: XOPENEX NEB INH PRN (05:45)
[2017-01-14 06:29] LABS: HEMATOCRIT 43.1 % (42.0-52.0); HEMOGLOBIN 13.7 g/dL (14.0-18.0); MCH 24.8 PG (27-31); MCHC 31.8 g/dL (33-37); MCV 77.9 FL (81-99); MPV 10.6 FL (7.4-10.4); RBC 5.53 XMIL (4.7-6.1)
[2017-01-14 07:04] LABS: AGAP 11; BUN 9 mg/dL (8-22); CALCIUM 9.4 mg/dL (8.8-10.2); CHLORIDE 99 mmol/L (98-107); COSMO 270; POTASSIUM 3.9 mmol/L (3.5-5.1); SODIUM 136 mmol/L (136-145); TCO2 26 mmol/L (25-35)
[2017-01-14] MEDS: ASPIRIN EC PO SCH (09:23)
[2017-01-14] MEDS: FISH OIL CONCENTRATE PO SCH (09:23)
[2017-01-14] MEDS: VITAMIN E PO SCH (09:23)
[2017-01-14] MEDS: TOPROL XL PO SCH (09:23)
[2017-01-14] MEDS: COZAAR PO SCH (09:23)
[2017-01-14] MEDS: MULTI-VITAMIN PO SCH (09:24)
[2017-01-14] MEDS: TAPAZOLE PO SCH (09:24)
[2017-01-14] MEDS: LEXAPRO PO SCH (09:24)
[2017-01-14] MEDS: COENZYME Q10 PO SCH (09:24)
[2017-01-14 11:47] VITALS: BP 146/79
--- NOTE | 2017-02-15 18:50 | DISCHARGE SUMMARY ---
ADMISSION DATE: 01/11/2017 DISCHARGE DATE: 01/14/2017 DISCHARGE DIAGNOSES: 1. Atrial fibrillation with rapid ventricular response. 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 3. Hypertension. 4. Chronic pain disorder. CONSULTATIONS: Cardiology, Trenton Grullon MD. HOSPITAL COURSE: Briefly this is a 66-year-old gentleman presenting with shortness of breath, atrial fibrillation with RVR with a heart rate of 131. He had a known atrial fibrillation, had been on amiodarone in the past. He did not respond well with Cardizem. He actually developed some hypotension, ended up being placed on Cardizem and Kash-Synephrine. Cardiology was consulted. Thyroid function tests were assayed. He had been placed on digoxin additionally. He had been previously on amiodarone and Xarelto, with a recent echo in September about 3 months prior, which was stable. He was found to be hyperthyroid and was placed on methimazole and we stopped his amiodarone. He was maintained on Cardizem and digoxin. By the , his heart rate had stabilized. He was switched to Toprol because of his hyperthyroid state. Dr. Grullon evaluated the patient, felt that we needed to stop the amiodarone and he would need to follow up with his primary remote sensing engineer in [place] to decide about other antiarrhythmic therapy. He has seen Dr. Ko and Dr. Reyes in the past. He stabilized by the time of discharge and was referred back to his primary remote sensing engineer. His heart rate was 63, blood pressure was stable, clinically he appeared well. We did set him up for an outpatient radioactive iodine uptake scan, although again, it was felt that this was likely related to amiodarone toxicity. DISCHARGE CONDITION: Stable. DISCHARGE MEDICATIONS: Toprol-XL 50 b.i.d., Cozaar 25 daily, aspirin 81 daily, clonidine 0.1 daily, pravastatin 80 daily, trazodone 100 daily, vitamin E omega-3 daily, multivitamin daily, Suboxone 8 mg b.i.d., Lexapro 20 daily, Lasix 80 daily, Xarelto 20 daily, Tapazole 10 daily with a dose of 5 mg at night. FOLLOWUP: He needs to follow up with his primary care physician and Endocrinology concerning his hyperthyroid state as well as his primary remote sensing engineer, Dr. Ko and Dr. Reyes in [place]. TIME SPENT: 32-minute discharge.
== END 2017-01-14 14:35 | disposition home or self-care (01) | DRG 308 ==
LOC: P.ED 11:47 → P.ICU 11:48 → P.MEDSURG 01-12 07:29
PROVIDERS: ATTEND Internal Medicine
DX: I48.0 Paroxysmal atrial fibrillation (principal); I50.33 Acute on chronic diastolic (congestive) heart failure; I95.9 Hypotension, unspecified; I11.0 Hypertensive heart disease with heart failure; J44.9 Chronic obstructive pulmonary disease, unspecified; F17.210 Nicotine dependence, cigarettes, uncomplicated; E87.6 Hypokalemia; I25.10 Atherosclerotic heart disease of native coronary artery without angina pectoris; E05.90 Thyrotoxicosis, unspecified without thyrotoxic crisis or storm; E78.5 Hyperlipidemia, unspecified; I25.2 Old myocardial infarction; H44.9 Unspecified disorder of globe; G89.29 Other chronic pain; F41.9 Anxiety disorder, unspecified; Z95.5 Presence of coronary angioplasty implant and graft; Z79.899 Other long term (current) drug therapy; Z79.82 Long term (current) use of aspirin; Z79.02 Long term (current) use of antithrombotics/antiplatelets; Z71.6 Tobacco abuse counseling; Z95.810 Presence of automatic (implantable) cardiac defibrillator; Z86.711 Personal history of pulmonary embolism; M19.90 Unspecified osteoarthritis, unspecified site; I83.90 Asymptomatic varicose veins of unspecified lower extremity; Z98.1 Arthrodesis status; Z96.652 Presence of left artificial knee joint; T46.2X5A Adverse effect of other antidysrhythmic drugs, initial encounter
CPT/HCPCS: 36415; 71010; 71020; 80048; 80053; 82550; 82805; 83735; 83880; 84439; 84443; 84445; 84484; 85025; 85027; 85379; 85610; 85730; 93005; 94640; 94761; 96361; 96365; 96368; 96375; J0360; J1160; J1940; J2370; J7030; J7050; 99285-25

== ENCOUNTER 2017-03-15 16:24 | Inpatient (IN) ==
[2017-03-15] MEDS ORDERED: ZOFRAN IV ONE (16:55)
[2017-03-15] MEDS ORDERED: DILAUDID IV ONE ×2 (16:55→17:52)
--- NOTE | 2017-03-15 17:08 | PROVIDER DOCUMENTATION ---
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 Denies loc, not sure if he hit his head. Was not able to ambulate afterwards, BIB EMS. has been taking the xarelto and all the rhythm/rate control medications. pain in the hip, without radiation. Denies headache. Denies and recent feelings of sob, chest pain or palpitations. Review of Systems - Adult - REVIEW OF SYSTEMS - ADULT Constitutional: reports: no symptoms reported. denies: chills, fever, fatique Eyes: reports: no symptoms reported. denies: decreased vision, blurred vision, double vision, eye pain Ears, Nose, Mouth & Throat: reports: no symptoms reported. denies: ear pain, nose pain, throat pain Cardiovascular: reports: no symptoms reported. denies: chest pain, irregular heart rate, palpitations Respiratory: reports: no symptoms reported. denies: cough, shortness of breath , wheezing Gastrointestinal: reports: no symptoms reported. denies: abdominal pain, diarrhea, nausea, vomiting Genitourinary: reports: no symptoms reported. denies: dysuria, discharge, frequency, incontinence Musculoskeletal: reports: see HPI, bone pain, joint pain, muscle aches. denies : back pain Integumentary: reports: no symptoms reported. denies: rash Neurological: reports: no symptoms reported. denies: headache/migraines Psychiatric: reports: no symptoms reported Endocrine: reports: no symptoms reported Hematologic/Lymphatic: reports: no symptoms reported Allergic/Immunologic: reports: no symptoms reported All Other Systems: Reviewed and Negative Past History - Adult - PAST MEDICAL HISTORY-ADULT Review of Records: reports: Old Records Reviewed, Nursing Assessment Review, Medications Reviewed Major Childhood Illnesses: reports: denies history Cardiovascular: reports: cardiac disease, arrhythmia, CAD, HTN, hyperlipidemia, MA Respiratory: reports: COPD Gastrointestinal: reports: denies history Genitourinary: reports: denies history Musculoskeletal: reports: chronic pain Neurological: reports: denies history Psychiatric: reports: anxiety Endocrine/Immune: reports: denies history Other Conditions: reports: denies history - PRIOR SURGERIES/PROCEDURES Surgical/Procedure History: reports: appendectomy, cardiac stent (x2 in 1989), other (gastric) - IMMUNIZATION STATUS Childhood Immunizations: UTD Flu Vaccine: UTD - FAMILY HISTORY Family History: reviewed, not pertinent Physical Exam-Injury Related - Physical Exam-Injury Related Initial Vital Signs Reviewed: Yes General Appearance: appears well, alert, no apparent distress Eyes: PERRL/EOMI, pink conjunctivae Head, Ears, Nose, Mouth & Throat: normocephalic/atraumatic, moist mucous membranes Neck: non-tender, full range of motion, supple, normal inspection Respiratory: chest non-tender, no pleuratic chest pain, no respiratory distress , no accessory muscle use, wheezing (generalized) Cardiovascular: tachycardia, irregularly irregular, other (1+ pitting edema bilaterally) Peripheral Pulses: dorsalis-pedis (R): 2+, dorsalis-pedis (L): 2+ Extremity: other (right leg is externally rotated, does not appear shortened, although difficult to appreciate because patient cannot stand to straighten the left leg fully. Pelvis is stable, but the right hip is ttp.) Integumentary: normal color, warm/dry Neurologic: grossly normal, no motor/sensory deficits Psych/Mental Status: normal mood/affect, normal thought content, normal thought process, oriented x 3 - Glascow Coma Score Best Eye Response ([place]): (1) no response Best Verbal Response ([place]): (5) oriented Best Motor Response ([place]): (6) obeys commands Progress - PLAN OF CARE/RESULTS Progress/Plan/Lab Results: Vital Signs - 8 hr 03/15/17 16:26 Pulse Rate 119 H Respiratory Rate 16 Blood Pressure 146/97 O2 Sat by Pulse Oximetry 94 L Laboratory Results - last 24 hr 03/15/17 03/15/17 18:10 18:10 WBC 14.70 H RBC 5.23 Hgb 13.1 L Hct 41.4 L MCV 79.2 L MCH 25.0 L MCHC 31.6 L RDW Std Deviation 16.8 H Plt Count 237 MPV 10.2 Immature Gran % (Auto) 0.5 Neut % (Auto) 77.0 H Lymph % (Auto) 13.3 L [place] % (Auto) 8.8 Eos % (Auto) 0.1 Baso % (Auto) 0.3 Immature Gran # (Auto) 0.08 H Neut # (Auto) 11.31 H Lymph # (Auto) 1.96 [place] # (Auto) 1.30 H Eos # (Auto) 0.01 Baso # (Auto) 0.04 Sodium 139 Potassium 3.7 Chloride 99 Carbon Dioxide 29 Anion Gap 11 BUN 16 Creatinine 0.8 Estimated GFR/1.73 m2 > 60 BUN/Creatinine Ratio 20 Glucose 130 H Calculated Osmolality 280 Calcium 9.1 Total Bilirubin 0.60 AST 20 ALT 22 Alkaline Phosphatase 63 Total Protein 6.5 Albumin 4.2 Globulin 2.0 Albumin/Globulin Ratio 2.0 Orders Category Date Time Status Banuelos Cath Insertion ORDERED Care 03/15/17 18:04 Active Saline Loc NOW Care 03/15/17 16:54 Active CHEST-PORTABLE [RAD] Stat Exams 03/15/17 16:54 Draft HEAD W/O CONTRAST [CT] Stat Exams 03/15/17 17:06 Draft PELVIS W/O CONTRAST [CT] Stat Exams 03/15/17 17:07 Draft CBC WITH ELECTRONIC DIFF [HEME] Stat Lab 03/15/17 18:10 Completed COMPREHENSIVE METABOLIC PANEL [CHEM] Stat Lab 03/15/17 18:10 Completed Diltiazem [Cardizem] Med 03/15/17 17:56 Discontinued 10 mg IV NOW ONE Diltiazem [Cardizem] Med 03/15/17 18:19 Discontinued 10 mg IV NOW ONE Diltiazem [Cardizem] Med 03/15/17 18:53 Discontinued 10 mg IV NOW ONE Hydromorphone [Dilaudid] Med 03/15/17 16:55 Discontinued 1 mg IV NOW ONE Hydromorphone [Dilaudid] Med 03/15/17 17:52 Discontinued 1 mg IV NOW ONE Morphine Med 03/15/17 18:53 Discontinued 4 mg IV NOW ONE Ondansetron [Zofran] Med 03/15/17 16:55 Discontinued 4 mg IV NOW ONE Promethazine [Phenergan] Med 03/15/17 18:53 Discontinued 12.5 mg IV NOW ONE Sodium Chloride 0.9% Med 03/15/17 18:53 Discontinued 10 ml INJ NOW ONE EKG [EKG] Stat Ther 03/15/17 18:29 Draft Result Diagrams: 03/15/17 18:10 03/15/17 18:10 - CT/MRI 1 CT Study: Head Impression: Normal (chornic white matter microvascular chages per radiology) 2 CT Study: Pelvis Impression: Abnormal (Comminuted fracture involving the right femoral neck extending to the femoral shaft with moderate displacement of the fragments per Dr. Jimenez, radiology) - CONSULTS/PCP/HOSPITALIST Notification #1 *Consult/PCP/Hospitalist*: Dr. Hui orthopedic Time Discussed: 18:28 Reason/Comments: comminuted femoral neck fracture extending to the femoral shaft #2 Consult: Dr. Quintana, hospitalist Time Discussed: 19:21 Reason/Comments: hip fracture, AFib Consult Disposition: Admit Departure - Departure Time of Disposition Decision: 18:28 DIAGNOSIS: Atrial fibrillation with RVR Hip fracture Qualifiers: Encounter type: initial encounter Fracture type: closed Laterality: right Qualified Code(s): S72.001A - Fracture of unspecified part of neck of right femur, initial encounter for closed fracture Disposition: ADMITTED INPATIENT 09 Certified Medical Emergency: Emergent Condition: Stable Referrals and Follow-Ups: None,PCP [Primary Care Provider] - Attestation - Physician/ YOLANDA Attestation Patient care was provided by Advanced Practice Provider:: Yes Advanced Practice Provider:: Casie Nichols Advanced Practice Provider documentation review:: The Mid-level provider documentation, treatment plan and medical decision making was reviewed by the physician who agrees with all treatment and medical decision making by the P.
[2017-03-15] MEDS ORDERED: CARDIZEM IV ONE ×3 (17:56→18:53)
[2017-03-15 18:13] LABS: MANUAL DIFF NEEDED? NO
[2017-03-15 18:27] LABS: BASO% 0.3 % (0.0-0.8); EOS# 0.01 X1000 (0.0-0.7); EOS% 0.1 % (0.0-10.0); HEMATOCRIT 41.4 % (42.0-52.0); HEMOGLOBIN 13.1 g/dL (14.0-18.0); IMM GRAN# 0.08 X1000 (0.0-0.04); IMM GRAN% 0.5 % (0.0-0.5); LYMPH# 1.96 X1000 (1.2-3.4); LYMPH% 13.3 % (20.5-51.1); MCHC 31.6 g/dL (33-37); MCV 79.2 FL (81-99); MONO% 8.8 % (1.7-9.3); MPV 10.2 FL (7.4-10.4); PLT 237 X1000 (130-400); RBC 5.23 XMIL (4.7-6.1)
[2017-03-15 18:44] LABS: AGAP 11; ALBUMIN 4.2 g/dL (3.5-5.0); ALKALINE PHOSPHATASE 63 U/L (32-122); BUN 16 mg/dL (8-22); CALCIUM 9.1 mg/dL (8.8-10.2); CHLORIDE 99 mmol/L (98-107); COSMO 280; GOT 20 U/L (10-34); GPT 22 U/L (10-44); POTASSIUM 3.7 mmol/L (3.5-5.1); SODIUM 139 mmol/L (136-145); TCO2 29 mmol/L (25-35); TOTAL PROTEIN 6.5 g/dL (6.3-8.3)
[2017-03-15] MEDS ORDERED: PHENERGAN IV ONE (18:53)
[2017-03-15] MEDS ORDERED: SODIUM CHLORIDE 0.9% INJ ONE (18:53)
[2017-03-15] MEDS ORDERED: MORPHINE IV ONE ×2 (18:53→21:50)
--- NOTE | 2017-03-15 19:02 | Diag Imaging Result Document ---
PROCEDURE NAME: CHEST-PORTABLE - 03/15/2017 PORTABLE CHEST: COMPARISON: Compared to 01/12/2017. The lungs are well expanded. The patient has a left-sided pacemaker. The heart is mildly prominent, although this is an AP technique. Mild central vascular prominence. No consolidation. No pleural effusions identified. No contusion or pneumothorax. No pleural effusions. IMPRESSION: I do not identify an injury.
--- NOTE | 2017-03-15 19:03 | EKG Report ---
Test Performed on : 03/15/2017 6:33:37 PM Test Reason : CP Blood Pressure : / mmHG Vent. Rate : 147 BPM Atrial Rate : 170 BPM P-R Int : 000 ms QRS Dur : 090 ms QT Int : 302 ms P-R-T Axes : 000 054 004 degrees QTc Int : 472 ms Atrial fibrillation. with rapid ventricular response. Nonspecific T wave abnormality Abnormal ECG When compared with ECG of 11-JAN-2017 22:06, Atrial fibrillation. has replaced Sinus rhythm. Vent. rate has increased BY [address] no longer elevated in Anterior leads Unconfirmed Result
--- NOTE | 2017-03-15 19:05 | Diag Imaging Result Document ---
PROCEDURE NAME: HEAD W/O CONTRAST - 03/15/2017 STUDY: CT brain without contrast. PROTOCOL: Dose reduction protocol. No parenchymal hemorrhage. No epidural or subdural hematoma. No subarachnoid hemorrhage. No skull fracture. Chronic microvascular ischemic changes with mild atrophy. No hydrocephalus. No sinus opacification. No air fluid levels. IMPRESSION: 1. No hemorrhage. No injury. 2. Atrophy with chronic microvascular ischemic changes. A preliminary report was given at 6:07 p.m.
--- NOTE | 2017-03-15 19:08 | Diag Imaging Result Document ---
PROCEDURE NAME: PELVIS W/O CONTRAST - 03/15/2017 STUDY: CT pelvis without contrast. There is a right femoral neck fracture which extends into the proximal femoral shaft. The lesser trochanter has a fragment displaced medially. The femoral shaft is rotated and superiorly placed. The femoral head remains in the acetabulum. No separation to the pubic symphysis. Cortical irregularity to the posterior left iliac bone at the sacroiliac joint has an appearance similar to 10/20/2016. Questionable mild widening to the left sacroiliac joint is also unchanged. Moderate to prominent atherosclerosis. 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 IMPRESSION: Right femoral neck fracture which extends into the proximal femoral shaft with multiple fracture lines involving the proximal shaft and neck. A preliminary report was given at 6:13 p.m.
[2017-03-15] MEDS ORDERED: DILAUDID IM PRN (19:23)
[2017-03-15] MEDS ORDERED: ZOFRAN IV PRN (19:23)
[2017-03-15] MEDS ORDERED: NS 250 ML ONE (19:44)
[2017-03-15] MEDS: CARDIZEM 100 MG/NS 100 MG/100 ML IVPB IV SCH (19:55)
[2017-03-15] MEDS ORDERED: TYLENOL PO PRN (23:07)
[2017-03-15] MEDS ORDERED: DUONEB (A & A) INH ONE (23:07)
[2017-03-15] MEDS ORDERED: MORPHINE IV PRN (23:07)
[2017-03-15] MEDS ORDERED: NS 1,000 ML IV SCH (23:07)
[2017-03-15] MEDS ORDERED: PHENERGAN IV PRN (23:07)
[2017-03-15] MEDS ORDERED: SODIUM CHLORIDE 0.9% INJ PRN (23:07)
--- NOTE | 2017-03-15 23:19 | HISTORY AND PHYSICAL ---
REASON FOR ADMISSION: Fall with subsequent left hip pain. PRIMARY CARE PHYSICIAN: None. HISTORY OF PRESENT ILLNESS: Mr. Sykes is 66-year-old man with past medical history of COPD, hyperthyroidism, hypertension, coronary artery disease, who comes in complaining of sudden right hip pain after was tripped by his garden hose. Once he fell, he said he felt excruciating pain in his right hip and could not get up and called EMS. He denies hitting his head or losing consciousness. He denied any cardiorespiratory complaints before, during or after the fall. Patient denies any chest pain, but he has mild dyspnea related to his COPD. Denies any PND, orthopnea, or new cardiorespiratory symptoms. Otherwise, no cough, fever or chills. No GI or complaints. No neurological complaints otherwise. REVIEW OF SYSTEMS: Other than pain in his right hip which is localized and nonradiating, is negative for any leg swelling distally or discoloration. Twelve systems review was done and positive findings noted in HPI. ALLERGIES: Penicillin. Codeine. HOME MEDICATIONS: Suboxone 1 b.i.d., aspirin 81 mg daily, clonidine 0.1 mg b.i.d., Lexapro 20 mg daily, furosemide 80 mg daily, Cozaar 25 mg daily, Tapazole 10 mg morning and 5 mg in the evening, Toprol-XL 50 mg b.i.d., vitamins once a day, pravastatin 80 mg at bedtime, Xarelto 20 mg daily, trazodone 100 mg at bedtime, omega-3 daily. FAMILY HISTORY: Notable for heart disease and lung cancer, but no diabetes in first-degree relatives. SURGICAL HISTORY: Gastric surgery. Finger amputation on both ring fingers on both hands. Bilateral knee surgery. Hernia repair. Appendectomy. Two heart stents. Left pacemaker implantation. SOCIAL HISTORY: Smokes about half a pack a day. No alcohol or illicit drug use. He is . PAST MEDICAL HISTORY: Includes hyperthyroidism, secondary to amiodarone, hypertension, hyperlipidemia, coronary artery disease, COPD and anxiety. DIAGNOSTICS: The patient has a comminuted right femoral neck fracture extending down to the mid shaft. EKG shows atrial fibrillation with rapid ventricular rate of 147, nonspecific ST-T wave changes noted. Other laboratory, white count 14,000, hemoglobin and hematocrit 13 and 41, MCV 79, platelet 237,000, neutrophils 77%. Glucose 130. Chest film does show mild central vascular prominence. Otherwise, nil of note. CT head: Atrophy with chronic microvascular changes. No acute bleed. PHYSICAL EXAMINATION: GENERAL: Middle-aged man who is in acute distress from his pain. He is alert and oriented x3. Normal mood and affect. Blood pressure is 123/70, heart rate is 120, he has been breathing at 22 per minute. He is afebrile. O2 saturation is 97% on room air. HEENT: Head is normocephalic, atraumatic. Eyes, ASA, EOMI, and slightly bloodshot. He is anicteric and not pale. ENT exam is grossly normal. NECK: Supple. No JVD or carotid bruit. No thyromegaly. He has also diaphoretic. CHEST: Decreased air entry in both lung hagan. Scattered wheezes. No crepitations. CARDIOVASCULAR: First and second heart sounds heard. No gallops, murmurs, or rubs. Rhythm is irregular. ABDOMEN: Protuberant, soft, nontender. No masses or organomegaly. Bowel sounds hypoactive. RECTAL: Deferred at this time. EXTREMITIES: Patient has shorter right lower extremity. It is externally rotated. He has trace edema in both lower extremities. Pulses distally in lower extremity are intact and with good volume and symmetrical. No clubbing or peripheral cyanosis. NEUROLOGIC: Grossly intact, although he could wiggle his toes and bend his right foot which is a limitation of his right lower extremity exam. SKIN: Intact. No breakdown lesions. MUSCULOSKELETAL: See above. ASSESSMENT: 1. Right femoral neck fracture. 2. Chronic obstructive pulmonary disease. 3. Coronary artery disease. 4. Hypertension. 5. Hyperthyroidism. 6. Hyperlipidemia. 7. Atrial fibrillation. PLAN: 1. At this time we will withhold Xarelto, but we will need to continue aspirin regardless because patient has a stent. To discontinue this may increase his risk for a cardiovascular event. I do not see this patient having surgery in the next day or so. Also, this is because of his risk of bleeding from aspirin, Xarelto, omega-[address] Hui has been notified and will see patient tomorrow. I will cautiously hydrate patient and resume blood pressure medications as needed. Pain control is very essential in this patient and I will start him on morphine, oxycodone and Ofirmev. Thyroid stimulating hormones will need to be followed and his medications will need to be adjusted accordingly. I have ordered 2 troponins just because of patient's tachycardia and to ensure that he does not undergo surgery if he is having an acute event. cc: Whitley Quintana MD MTDD
[2017-03-16] MEDS: PERICOLACE PO SCH ×3 (00:07→21:21)
[2017-03-16] MEDS: TOPROL XL PO SCH ×3 (00:07→21:21)
[2017-03-16] MEDS: OFIRMEV 1000 MG/ISOTONIC SOLN 1,000 MG/100 ML BOTTLE IV SCH ×4 (00:07→16:38)
[2017-03-16] MEDS: OXY IR PO PRN ×3 (01:09→14:00)
[2017-03-16] MEDS: DILAUDID IV PRN ×7 (02:36→21:16)
[2017-03-16] MEDS: CARDIZEM 100 MG/NS 100 MG/100 ML IVPB IV SCH ×4 (02:36→21:42)
[2017-03-16] MEDS ORDERED: DUONEB (A & A) INH SCH (04:00)
[2017-03-16 06:08] LABS: MANUAL DIFF NEEDED? NO
[2017-03-16 06:18] LABS: BASO% 0.4 % (0.0-0.8); EOS# 0.09 X1000 (0.0-0.7); EOS% 0.7 % (0.0-10.0); HEMATOCRIT 40.6 % (42.0-52.0); HEMOGLOBIN 12.9 g/dL (14.0-18.0); IMM GRAN# 0.04 X1000 (0.0-0.04); IMM GRAN% 0.3 % (0.0-0.5); LYMPH# 2.33 X1000 (1.2-3.4); LYMPH% 17.8 % (20.5-51.1); MCH 25.5 PG (27-31); MCHC 31.8 g/dL (33-37); MCV 80.2 FL (81-99); MONO# 1.65 X1000 (0.11-0.59); MONO% 12.6 % (1.7-9.3); MPV 10.7 FL (7.4-10.4); NEUT% 68.2 % (42.2-75.2); PLT 208 X1000 (130-400); RBC 5.06 XMIL (4.7-6.1)
[2017-03-16 06:32] LABS: AGAP 12; BUN 15 mg/dL (8-22); CALCIUM 8.8 mg/dL (8.8-10.2); CHLORIDE 100 mmol/L (98-107); COSMO 281; POTASSIUM 4.1 mmol/L (3.5-5.1); SODIUM 140 mmol/L (136-145); TCO2 28 mmol/L (25-35)
[2017-03-16] MEDS ORDERED: DUONEB (A & A) INH PRN (07:31)
[2017-03-16] MEDS ORDERED: LASIX IV ONE (07:33)
[2017-03-16] MEDS: LEVAQUIN 750 MG/D5W 750 MG/150 ML IVPB IV SCH (08:11)
[2017-03-16] MEDS: LEXAPRO PO SCH (08:11)
[2017-03-16] MEDS: TAPAZOLE PO SCH ×2 (08:12→21:22)
[2017-03-16] MEDS: SOLU-MEDROL IV SCH ×2 (08:12→15:09)
[2017-03-16] MEDS: SUBOXONE 8 MG/2 MG SL SCH ×3 (08:12→21:23)
[2017-03-16] MEDS: ASPIRIN EC PO SCH (08:12)
[2017-03-16] MEDS: COZAAR PO SCH (08:12)
[2017-03-16] MEDS: CENTRUM SILVER PO SCH (08:12)
[2017-03-16] MEDS: CATAPRES PO SCH ×2 (08:13→21:21)
[2017-03-16 10:20] LABS: ALLEN TEST NO; BE 5.1 mmoll (-3.0-3.0); BLOOD TYPE ARTERIAL; DRAW SITE R BRACHIAL; METHB 1.2 % (0.0-1.5); O2(CT) 16.4 mL/dL (15.0-23.0); PCO2(98.6) 47 mmHg (35-45); PO2(98.6) 51 mmHg (60-100); SAMPLE BLOOD; SAO2 91.5 % (95.0-100.0); THB 13.3 g/dL (11.5-17.4); pH(98.6) 7.42 (7.35-7.45)
[2017-03-16 10:21] LABS: MODALITY ROOM AIR
[2017-03-16] MEDS: MUCOMYST 20% INH SCH ×2 (10:36→20:00)
[2017-03-16] MEDS: DUONEB (A & A) INH SCH ×4 (10:36→23:12)
--- NOTE | 2017-03-16 14:19 | CONSULTATION ---
DATE OF CONSULTATION: 03/16/2017 CARDIOLOGY CONSULTATION: INDICATION: Preoperative evaluation prior to right hip fracture repair. HISTORY OF PRESENT ILLNESS: Mr. Sykes is a 66-year-old white male who normally follows with Dr. Aviles over in [place]. He recently saw him on the and seems like he was doing quite well. He did have some ABIs ordered for some chronic lower extremity numbness and discomfort with walking but otherwise seemed to be stable from a coronary disease standpoint. He exercises 7 times a week at the gym by walking on a treadmill. In addition he also tilled his garden using a walk behind [employer] without any sort of chest pain or shortness of breath. He had a fall at home yesterday. He was walking around in his yard and tripped over a garden hose and suffered a right hip fracture. Presently, he is in quite a bit of discomfort, describes his pain around 6/10 and is visibly uncomfortable. PAST MEDICAL HISTORY: Significant for: 1. Hyperthyroidism. 2. Diastolic heart failure. 3. Persistent atrial fibrillation. 4. Coronary artery disease with previous stent in 2003, last catheterization appears to be in 2013. He had a patent LAD stent, with an occluded right coronary with collaterals. EF on that study was 50-55. He had a nuclear scan in October 2016. He had a large reversible defect in the inferior wall consistent with the occluded right coronary that was collateralized. EF on that study was 63. He had no other evidence of ischemia. 5. History of ventricular fibrillation with ICD implant. 6. Hypertension. 7. Hyperlipidemia. 8. History of pulmonary embolism at the time of a hernia repair in 2013. 9. History of venous insufficiency. 10. History of GI bleed. 11. COPD. SOCIAL HISTORY: He smokes around a half pack per day. No current illicit drugs or alcohol use. He is . is present in the room. FAMILY HISTORY: Notable for heart disease and lung cancer. REVIEW OF SYSTEMS: A 10 system review of systems is negative except for those things mentioned in HPI. PHYSICAL EXAMINATION: Vital Signs: He is afebrile. His heart rates seem to be running anywhere from the 90s to the 120s predominantly. Blood pressure 122/78. Generally: He does seem to be in some mild to moderate distress secondary to 6/10 pain in the right hip. HEENT: Oropharynx is moist. Poor dentition. Eye examination is pink conjunctivae, white sclerae. Neck: Examination shows no obvious thyromegaly or thyroid tenderness. Cardiovascular: He is in an irregularly irregular, mildly tachycardic rhythm. No obvious murmurs. He has no lower extremity edema. Chest Exam: Sounds clear bilaterally. No increased work of breathing. Abdomen: Soft, nontender, nondistended. He has no obvious organomegaly. Skin Exam: Warm and dry throughout without any rashes. Neurological: He is moving all extremities well. Cranial nerves 2-12 intact without any sensation deficits. Psychiatric: He is alert, oriented, pleasant. Normal mood and affect. PERTINENT DATA: He had an EKG today showing atrial fibrillation rate of 113 beats per minute. His laboratory data shows a white count of 13, hematocrit 40, his platelet count is 208,000. His sodium is 140, potassium is 4.1, BUN 15, creatinine 0.7. His free T4 is 2.63 with a TSH of 0.01. Troponins are negative. He had a pelvis CT demonstrating right femoral neck fracture. Chest x- ray demonstrated no evidence of acute findings. ASSESSMENT: 1. Persistent atrial fibrillation, now in rapid ventricular response. 2. Coronary artery disease. 3. Right hip fracture. PLAN: The patient has a good exercise tolerance with most recent catheterization and nuclear scan suggesting a chronically occluded right coronary with collaterals. This necessitates continued medical management but does not necessitate delaying him from going to the operating room. His atrial fibrillation is going a little fast and he is currently on diltiazem as well as metoprolol. I believe the etiology of the rapid ventricular response is his current issues with right hip pain and the high sympathetic tone associated with that. Likely repairing the hip will improve that. He may continue on the Xarelto after with the operative repair for the atrial fibrillation. I do not have any other recommendations currently at this time. When he is satisfactory to go to the operating room from a surgical standpoint he should be able to from a cardiovascular standpoint. I have discussed this at length with the patient as well as his family who are present at bedside. cc: George Reina MD
--- NOTE | 2017-03-16 14:43 | PROGRESS NOTE ---
DATE: 03/16/2017 SUBJECTIVE: The patient is resting comfortably in bed. He complains of a productive cough and pain in his right hip. OBJECTIVE: Vital Signs: Temperature 98.5 degrees, blood pressure 122/78, heart rate 98, respirations 21, O2 saturations 98% on room air. General: This is a morbidly obese male, lying in bed, in no acute distress. Head: Normocephalic, atraumatic. Heart: S1, S2. Normal. Irregularly irregular rhythm. Lungs: Coarse breath sounds with diffuse rhonchi. Abdomen: Positive bowel sounds. Soft, obese, nontender, nondistended. Extremities: No edema. No cyanosis. No calf tenderness. Neurologic: The patient is alert oriented x3. LABORATORY: White blood cell count 13, hemoglobin 12, hematocrit 40, platelets 208,000. ABG: PH of 7.42, pCO2 47, PO2 51. Sodium 140, potassium 4.1, chloride 100, CO2 28, BUN 15, creatinine 0.7 glucose 105, TSH 0.01. Free T4 2.63. ASSESSMENT AND PLAN: 1. Acute chronic obstructive pulmonary disease exacerbation. We will start the patient on IV steroids, bronchodilator therapy and IV antibiotic therapy as well as supplemental oxygen. We will consult Pulmonary. 2. Right femoral neck fracture. Orthopedic Surgery has been consulted. 3. Atrial fibrillation with rapid ventricular response. The patient is on a cardizem drip. Will consult cardiology for cardiac clearance. Will hold the xarelto in anticipation of surgery. 4. Hyperthyroidism. Continue on Tapazole. 5. Morbid obesity. Aware. 6. Dyslipidemia. Continue on Pravachol. 7. Situational depression. Continue on Lexapro. 8. CAD. Aware. Continue on the current cardiac medications. cc: Leonor Hadnley MD MTDD
[2017-03-16] MEDS ORDERED: LASIX PO SCH (15:00)
--- NOTE | 2017-03-16 15:46 | EKG Report ---
Test Performed on : 03/16/2017 1:29:04 PM Test Reason : afib Blood Pressure : / mmHG Vent. Rate : 113 BPM Atrial Rate : 115 BPM P-R Int : 000 ms QRS Dur : 094 ms QT Int : 282 ms P-R-T Axes : 000 073 054 degrees QTc Int : 386 ms Atrial fibrillation. with rapid ventricular response. Abnormal ECG When compared with ECG of 15-MAR-2017 18:33, ST elevation now present in Anterior leads consider recent KYLE ND Confirmed by Compa COOPER, Efraín Umanzor ([id number]) on 03/17/2017 6:32:07 PM
[2017-03-16] MEDS: LASIX PO SCH (16:38)
--- NOTE | 2017-03-16 17:22 | Diag Imaging Result Document ---
PROCEDURE NAME: THORAX/ABDOMEN/PELVIS W/O CONT - 03/16/2017 CT THORAX OF PELVIS WITHOUT CONTRAST: FINDINGS: No contrast administered per request of the referring provider. A dose reduction protocol was used. Compared with images from the CT angiogram of October 20, 2016. There are mild emphysematous changes, primarily at the lung apices. There is bilateral dependent atelectasis. There is no consolidation, pleural effusion, or pneumothorax identified. There is a nonspecific 5 mm nodular density adjacent to the right minor fissure which is stable. There are no substantially enlarged mediastinal lymph nodes identified. There are thoracic spine degenerative changes noted. There are no acute abnormalities of the liver, spleen, or pancreas identified. There are a few small gallstones in the dependent portion of the gallbladder. There is no pericholecystic inflammation identified. There is a 2.4 cm left adrenal nodule which is stable , likely representing adenoma. The right adrenal gland is unremarkable. The bilateral kidneys are unremarkable. There is no evidence of renal stone or hydronephrosis. There is mild retroperitoneal adenopathy which appears stable. There is mild aneurysmal dilatation of the distal abdominal aorta with maximum diameter 4 cm, which is stable. There is no evidence of bowel obstruction. There is a moderate amount of retained fecal debris in the colon. There is mild colonic diverticulosis. There is no evidence of diverticulitis. There is no abscess identified. There is no free air. There is a Banuelos catheter in the urinary bladder. There is possible thickening of the urinary bladder vargas with hazy external margins which may relate to cystitis. IMPRESSION: 1. Mild emphysematous changes. Mild dependent atelectasis. No other evidence of acute disease in the thorax. No pneumonia. 2. A few small gallstones in the gallbladder. No pericholecystic inflammation. 3. Stable 2.4 cm left adrenal nodule, possibly representing adenoma. 4. Stable mild retroperitoneal adenopathy. 5. Stable 4 cm infrarenal abdominal aortic aneurysm. 6. No bowel obstruction. Apparent constipation. Mild uncomplicated colonic diverticulosis. 8. No abscess. No free air. 9. Possible urinary bladder cystitis. [facility]
[2017-03-16] MEDS: DESYREL PO SCH (21:21)
[2017-03-16] MEDS: PRAVACHOL PO SCH (21:22)
[2017-03-17] MEDS: SOLU-MEDROL IV SCH ×3 (00:15→17:26)
[2017-03-17] MEDS: DUONEB (A & A) INH SCH ×6 (03:30→23:05)
[2017-03-17] MEDS: CARDIZEM 100 MG/NS 100 MG/100 ML IVPB IV SCH ×3 (04:31→18:56)
[2017-03-17] MEDS: DILAUDID IV PRN ×6 (05:03→20:45)
[2017-03-17 05:26] LABS: MANUAL DIFF NEEDED? NO
[2017-03-17 05:29] LABS: HEMATOCRIT 42.7 % (42.0-52.0); HEMOGLOBIN 13.5 g/dL (14.0-18.0); IMM GRAN# 0.02 X1000 (0.0-0.04); IMM GRAN% 0.2 % (0.0-0.5); LYMPH# 1.13 X1000 (1.2-3.4); LYMPH% 11.9 % (20.5-51.1); MCH 25.1 PG (27-31); MCHC 31.6 g/dL (33-37); MCV 79.4 FL (81-99); MONO# 0.55 X1000 (0.11-0.59); MONO% 5.8 % (1.7-9.3); MPV 10.3 FL (7.4-10.4); NEUT% 82.1 % (42.2-75.2); PLT 202 X1000 (130-400); RBC 5.38 XMIL (4.7-6.1)
[2017-03-17 05:51] LABS: AGAP 16; BUN 19 mg/dL (8-22); CALCIUM 9.4 mg/dL (8.8-10.2); CHLORIDE 95 mmol/L (98-107); COSMO 283; POTASSIUM 3.8 mmol/L (3.5-5.1); SODIUM 139 mmol/L (136-145); TCO2 28 mmol/L (25-35)
[2017-03-17] MEDS: OXY IR PO PRN (06:41)
[2017-03-17] MEDS: MUCOMYST 20% INH SCH ×2 (07:04→19:30)
--- NOTE | 2017-03-17 07:54 | Diag Imaging Result Document ---
PROCEDURE NAME: CHEST-PORTABLE - 03/17/2017 SINGLE FRONTAL RADIOGRAPH OF THE CHEST: COMPARISON: 03/15/2017. FINDINGS: No new consolidations are identified. The lungs are essentially clear. Mildly prominent central vasculature is essentially stable. Prominent cardiac silhouette is unchanged. IMPRESSION: Stable chest.
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
[2017-03-17] MEDS: LEVAQUIN 750 MG/D5W 750 MG/150 ML IVPB IV SCH (08:17)
[2017-03-17] MEDS: COZAAR PO SCH (08:18)
[2017-03-17] MEDS: TAPAZOLE PO SCH ×2 (08:18→20:46)
[2017-03-17] MEDS: LASIX PO SCH (08:18)
[2017-03-17] MEDS: LEXAPRO PO SCH (08:18)
[2017-03-17] MEDS: CENTRUM SILVER PO SCH (08:18)
[2017-03-17] MEDS: PERICOLACE PO SCH ×2 (08:18→20:46)
[2017-03-17] MEDS: TOPROL XL PO SCH ×2 (08:18→20:46)
[2017-03-17] MEDS: ASPIRIN EC PO SCH (08:18)
[2017-03-17] MEDS: CATAPRES PO SCH ×2 (08:18→20:45)
--- NOTE | 2017-03-17 09:30 | PROGRESS NOTE ---
DATE: 03/17/2017 SUBJECTIVE: The patient is a pleasant 66-year-old male with multiple medical problems and is currently undergoing preoperative medical and cardiac clearance. He is currently resting comfortably. PHYSICAL EXAMINATION: Right lower extremity: His Anderson traction is intact. His calf is soft. He is grossly neurovascularly intact. He has active dorsiflexion and plantar flexion. LABORATORY DATA: His hemoglobin is 13.5, hematocrit is 42.7. IMPRESSION: Fracture of the right basilar neck with subtrochanteric extension. PLAN: At this point, the patient is undergoing preoperative medical clearance. Will plan on intramedullary nailing once this is obtained. cc: Dario Hui MD
[2017-03-17] MEDS: SUBOXONE 8 MG/2 MG SL SCH ×2 (09:36→20:46)
--- NOTE | 2017-03-17 14:29 | PROGRESS NOTE ---
DATE: 03/17/2017 SUBJECTIVE: Mr. Sykes continues to complain of right hip pain. He has not had operative intervention to this as of yet. He reports his pain currently as an 8/10. OBJECTIVE: Vital signs: He is afebrile, heart rates over the last 12 hours or so have been predominantly in the 60s to 90s. Blood pressure is 114/65. General: No acute distress. Cardiovascular: He is in an irregularly irregular rhythm. Currently telemetry shows rate controlled atrial fibrillation. He has no lower extremity edema. Chest: Some mildly coarse breath sounds with some all audible wheezing. He has no increased work of breathing. Abdomen: Soft, nontender, nondistended. No obvious organomegaly. Skin: Warm and dry throughout. PERTINENT DATA: Sodium 139, potassium 3.8, BUN 19, creatinine 0.7. ASSESSMENT: 1. Chronic atrial fibrillation. 2. Right hip fracture. PLAN: From a cardiovascular standpoint the patient is okay to go to the operating room. I believe the issues he has had with rapid ventricular response has been predominantly secondary to high sympathetic tone secondary to the pain he has been experiencing. I would continue with management as presently ordered. cc: George Reina MD
--- NOTE | 2017-03-17 15:47 | PROGRESS NOTE ---
DATE: 03/17/2017 SUBJECTIVE: The patient states that he feels a lot better today. His shortness of breath and coughing has improved. He remains in atrial fibrillation on a Cardizem drip. OBJECTIVE: Vital Signs: Temperature 98, blood pressure 114/65, heart rate 98, respirations 24, O2 saturations 93% on 1 L nasal cannula. General: This is a morbidly obese male, lying in bed, in no acute distress. Head: Normocephalic, atraumatic. Heart: S1, S2. Normal. Irregularly irregular rhythm. Lungs: Coarse breath sounds bilaterally. No crackles. No rales. Abdomen: Positive bowel sounds. Soft, obese, nontender, nondistended. Extremities: No edema. No cyanosis. No calf tenderness. Neurologic: The patient is alert and oriented x3. LABS: White blood cell count 9.5, hemoglobin 13, hematocrit 42, platelets 202. Sodium 139, potassium 3.8, chloride 95, CO2 of 28, BUN 19, creatinine 0.7, glucose 158. ASSESSMENT AND PLAN: 1. Acute chronic obstructive pulmonary disease exacerbation. Improved. Continue with bronchodilator therapy, IV steroids, IV antibiotics and supplemental oxygen. Pulmonary is following. 2. Right femoral neck fracture. Management as per the orthopedic surgeon. 3. Atrial fibrillation. Management as per the agriculture engineer. 4. Hyperthyroidism. Continue on Tapazole. 5. Morbid obesity. Aware. 6. Dyslipidemia. Continue on Pravachol. 7. Situational depression. Continue on Lexapro. 8. Coronary artery disease. Aware. cc: Leonor Handley MD
[2017-03-17] MEDS: PRAVACHOL PO SCH (20:45)
[2017-03-17] MEDS: DESYREL PO SCH (20:46)
[2017-03-18] MEDS: SOLU-MEDROL IV SCH ×3 (00:21→15:08)
[2017-03-18] MEDS: DILAUDID IV PRN ×5 (00:21→12:00)
[2017-03-18] MEDS: CARDIZEM 100 MG/NS 100 MG/100 ML IVPB IV SCH ×2 (03:06→09:49)
[2017-03-18] MEDS: DUONEB (A & A) INH SCH ×10 (03:25→22:53)
[2017-03-18 05:11] LABS: MANUAL DIFF NEEDED? NO
[2017-03-18 05:22] LABS: HEMATOCRIT 38.6 % (42.0-52.0); HEMOGLOBIN 12.3 g/dL (14.0-18.0); IMM GRAN# 0.03 X1000 (0.0-0.04); IMM GRAN% 0.4 % (0.0-0.5); LYMPH# 0.74 X1000 (1.2-3.4); LYMPH% 9.3 % (20.5-51.1); MCH 25.2 PG (27-31); MCHC 31.9 g/dL (33-37); MCV 79.1 FL (81-99); MONO# 0.52 X1000 (0.11-0.59); MONO% 6.5 % (1.7-9.3); MPV 9.9 FL (7.4-10.4); NEUT% 83.8 % (42.2-75.2); PLT 199 X1000 (130-400); RBC 4.88 XMIL (4.7-6.1)
[2017-03-18 05:36] LABS: AGAP 11; BUN 22 mg/dL (8-22); CHLORIDE 96 mmol/L (98-107); COSMO 278; SODIUM 136 mmol/L (136-145); TCO2 29 mmol/L (25-35)
[2017-03-18] MEDS: MUCOMYST 20% INH SCH ×2 (07:56→19:03)
[2017-03-18] MEDS: LEVAQUIN 750 MG/D5W 750 MG/150 ML IVPB IV SCH (09:55)
[2017-03-18] MEDS: ASPIRIN EC PO SCH (09:55)
[2017-03-18] MEDS: TOPROL XL PO SCH ×2 (09:55→20:57)
[2017-03-18] MEDS: LEXAPRO PO SCH (09:55)
[2017-03-18] MEDS: TAPAZOLE PO SCH ×2 (09:56→23:15)
[2017-03-18] MEDS: LASIX PO SCH (09:56)
[2017-03-18] MEDS: CATAPRES PO SCH ×2 (09:56→20:50)
[2017-03-18] MEDS: COZAAR PO SCH (09:56)
[2017-03-18] MEDS: PERICOLACE PO SCH ×2 (09:56→20:36)
[2017-03-18] MEDS: SUBOXONE 8 MG/2 MG SL SCH ×2 (09:57→20:55)
[2017-03-18] MEDS: CENTRUM SILVER PO SCH (09:58)
--- NOTE | 2017-03-18 09:59 | CONSULTATION ---
DATE OF CONSULTATION: 03/18/2017 REASON FOR CONSULT: Right hip pain. HISTORY OF PRESENT ILLNESS: Mr. Sykes is a 66-year-old white male with a history of COPD, as well as hypertension, hyperthyroidism and coronary artery disease who fell on the garden hose injuring his right hip. IMAGING: X-rays were obtained as well as a CT scan of the pelvis, which revealed right femoral neck fracture, which extends into the proximal femoral shaft. It also says that there is a lesser trochanteric fragment displaced immediately. We were asked to evaluate the patient for surgical intervention. PAST MEDICAL HISTORY: As stated above in the HPI. PAST SURGICAL HISTORY: Gastric surgery, finger amputation on both hands, bilateral knee surgery, hernia repair, appendectomy, cardiac stents, pacemaker implant. SOCIAL HISTORY: Patient is . He denies alcohol use, but he smokes about a pack of cigarettes a day. HOME MEDICATIONS: Toprol-XL 50 mg p.o. b.i.d., Cozaar 25 mg p.o. daily, Xarelto 20 mg p.o. daily, trazodone 100 mg p.o. at bedtime, clonidine 0.1 mg p.o. b.i.d., aspirin 81 mg p.o. daily, pravastatin sodium 80 mg p.o. at bedtime, CoQ10 with fish oil and vitamin E 1 p.o. daily, Centrum Silver 1 p.o. daily, escitalopram oxalate 20 mg p.o. daily, Lasix 80 mg p.o. daily, Suboxone 8 mg/2 mg 1 sublingual b.i.d., Tapazole 5 mg p.o. at bedtime. ALLERGIES: Penicillin and codeine. REVIEW OF SYSTEMS: A 10-point review of systems was performed and the patient answered and was negative all except for what was mentioned above in the History of Present Illness about his right hip pain. PHYSICAL EXAMINATION: General: The patient is awake, lying in bed. Answers questions mostly appropriately. HEENT: Head is normocephalic, atraumatic. Pupils equal, round, reactive to light. Nares patent. Throat without exudate. Cardiac: Irregular rhythm is auscultated. No murmur, rub or gallop noted. Lungs: Some expiratory wheezing noted bilaterally. Abdomen: Soft, nontender, nondistended. Bowel sounds present in all quadrants. Genitourinary: Not examined. Neurological: Patient has good sensation to dull touch in all extremities. Cranial nerves 2-12 are grossly intact. Extremities: Physical examination of the of the right hip reveals pain with palpation as well as pain with any movement of the right hip. I did not appreciate any erythema or ecchymosis. The patient is neuro intact. He has good sensation distal to the injury as well as brisk capillary refill distal to the injury and 2+ pedal pulses. IMAGING: CT revealed a right femoral neck fracture. ASSESSMENT: Right femoral neck fracture. PLAN: I discussed the injury with the patient and explained to him that it needed surgical repair. We will plan on performing an intramedullary nailing of the right femur which was discussed with the patient. The patient understands and agrees. The risks, benefits, and alternatives of the surgery were discussed with the patient including risk of anesthesia, infection, bleeding, damage to blood vessels, nerves, tendons, ligaments, and other imponderables were discussed. The patient agrees to proceed with the surgery at this time. Dictated by IMAN Mckenzie for Dario Hui MD cc: IMAN Mckenzie MD
[2017-03-18] MEDS ORDERED: LOPRESSOR IV ONE ×2 (13:00)
--- NOTE | 2017-03-18 14:32 | PROGRESS NOTE ---
DATE: 03/18/2017 SUBJECTIVE: The patient is resting comfortably in bed. He has no complaints. He is scheduled to undergo surgery today. OBJECTIVE: Vital Signs: Temperature 98 degrees, blood pressure 122/73, heart rate 84, respirations 20, O2 saturations 93% on room air. General: This is a morbidly obese male, lying in bed in no acute distress. Head: Normocephalic, atraumatic. Heart: S1, S2. Normal. Regular rate and rhythm. Lungs: Coarse breath sounds bilaterally. No crackles. No wheezing. No rales. Abdomen: Positive bowel sounds. Soft, nontender, nondistended. Extremities: No edema. No cyanosis. Neurologic: The patient is alert and oriented x3. LABS: 1. White blood cell count 7.9, hemoglobin 12, hematocrit 38, platelets 199. 2. Sodium 136, potassium 4, chloride 96, CO2 29, BUN 22, creatinine 0.6, glucose 146. ASSESSMENT AND PLAN: 1. Acute chronic obstructive pulmonary disease exacerbation. Improved. Continue on the current medications. 2. Right femoral neck fracture. The patient is scheduled to undergo surgery today. 3. Atrial fibrillation. The patient is rate controlled. Further management as per the [place]. 4. Hypothyroidism. Continue on Tapazole. 5. Morbid obesity. Aware. 6. Dyslipidemia. Continue on Pravachol. 7. Coronary artery disease. Aware. cc: Leonor Handley MD
[2017-03-18] MEDS ORDERED: FENTANYL ONE ×2 (15:42→18:05)
[2017-03-18] MEDS ORDERED: VANCOMYCIN 1 GM/NS 1 GM/250 ML IVPB ONE (16:07)
[2017-03-18] MEDS ORDERED: LASIX ONE (17:50)
[2017-03-18] MEDS ORDERED: OXY IR PO PRN (17:52)
[2017-03-18] MEDS ORDERED: MILK OF MAGNESIA PO PRN (17:52)
[2017-03-18] MEDS ORDERED: ZOFRAN IV PRN (17:52)
[2017-03-18] MEDS ORDERED: OFIRMEV 1000 MG/ISOTONIC SOLN 1,000 MG/100 ML BOTTLE ONE (17:54)
[2017-03-18] MEDS ORDERED: DUONEB (A & A) ONE (18:02)
[2017-03-18] MEDS ORDERED: DIPRIVAN 1% ONE (18:05)
[2017-03-18] MEDS: MORPHINE ONE ×3 (18:20→20:53)
--- NOTE | 2017-03-18 18:29 | OPERATIVE NOTE ---
PROCEDURE DATE: 03/18/2017 PREOPERATIVE DIAGNOSIS: Right basilar neck intertrochanteric femur fracture with subtrochanteric extension. POSTOPERATIVE DIAGNOSIS: Right basilar neck intertrochanteric femur fracture with subtrochanteric extension. PROCEDURE: Intramedullary nailing right femur with a Synthes 11 x 420 mm nail. SURGEON: Dario Hui MD. ASSISTANTS: RERE Ledezma. ANESTHESIA: General. IV FLUIDS: 600 mL lactated Ringer's. ESTIMATED BLOOD LOSS: 100 mL. COMPLICATIONS: None. INDICATION: The patient is a pleasant 66-year-old male with multiple medical problems including cardiac disease and COPD. Patient is status post fall 3 days ago sustaining a fracture of his right hip. The x-rays reveal a basilar neck fracture with subtrochanteric extension. Recommendation to the patient was initially evaluated at [facility], subsequently transferred [facility] for definitive orthopedic treatment. He was admitted in the hospital and placed in 5 pounds of Anderson's traction. After obtaining preoperative medical cardiac and pulmonary clearance recommendation to proceed with intramedullary nailing was offered. Risks, benefits surgery were explained, including the risks of anesthesia, , bleeding, infection, failure to relieve pain, postop stiffness, nerve injury, blood clots and other imponderables. All questions answered. Patient and family wished to proceed with surgery. DETAILS OF OPERATION: The patient taken to the operating room and underwent general anesthesia. After adequate anesthesia was obtained he was placed supine on operating table. Reduction was then obtained and was confirmed with C-arm visualization both AP and lateral projections. Approximately 3 fingerbreadths proximal to greater trochanter a lateral incision made. The blunt dissection performed through the gluteus allan down to tip of the greater trochanter. A guide pin was then placed on the tip of the greater trochanter and into the intramedullary canal. After confirming good position both AP and lateral projections with C-arm visualization starting reamer was passed and the guide pin was then removed. A ball-tip guide pin was then placed in the intramedullary canal and the length of nail was determined to be 420 mm. Sequential reamings then performed up to 12-1/2 mm in preparation for 11 mm diameter nail. The 11 x 420 mm nail was then impacted in position and the ball-tipped guide pin was then removed. Using the Outrigger guide the guide was then placed on lateral cortex through a stab incision proximally. A guide pin was then placed across the fracture site into the femoral neck and head. Had good position confirmed with C-arm visualization both AP and lateral projections. After this had been performed, the lateral cortex was reamed followed by cannulated drill. A 120 mm helical blade was then impacted in position had good purchase. Proximal set screw was tightened. Had good position confirmed with C-arm visualization both AP and lateral projections. Using perfect [place] technique through 2 stab incisions 2 distal locking screws were placed from lateral to medial, had good purchase on each screw. Final C-arm visualization of the fracture site as well as the hardware revealed good alignment of fracture and good position the hardware. Wounds were copiously irrigated. #1 Vicryl suture used repair deep fascia and proximal wound followed by 2-0 Vicryl in 2 proximal wounds and skin negra on all the wounds. Adaptic, sterile 4 x 4s, ABD pad and tape the right lower extremity. Patient tolerated procedure well, no complications. He was transferred to the recovery room in stable condition. cc: Dario Hui MD
[2017-03-18] MEDS: TYLENOL PO SCH (19:34)
[2017-03-18] MEDS: COLACE PO SCH (20:36)
[2017-03-18] MEDS: PRAVACHOL PO SCH (20:36)
[2017-03-18] MEDS: DESYREL PO SCH (20:37)
[2017-03-18] MEDS: OXY IR PO PRN (20:52)
[2017-03-18] MEDS ORDERED: LANOXIN IV ONE (22:44)
[2017-03-18] MEDS ORDERED: NS 250 ML IV SCH (22:55)
[2017-03-18] MEDS: LOPRESSOR IV PRN (23:17)
[2017-03-19] MEDS: SOLU-MEDROL IV SCH ×3 (00:09→20:37)
[2017-03-19] MEDS: LOPRESSOR PO SCH ×4 (02:07→20:39)
[2017-03-19] MEDS: OXY IR PO PRN ×3 (02:22→20:41)
[2017-03-19] MEDS: TYLENOL PO SCH ×3 (02:24→17:24)
[2017-03-19] MEDS ORDERED: LANOXIN IV ONE (03:00)
[2017-03-19] MEDS: DUONEB (A & A) INH SCH ×6 (03:24→22:51)
[2017-03-19] MEDS ORDERED: VANCOMYCIN 1 GM/NS 1 GM/250 ML IVPB IV SCH (04:00)
[2017-03-19] MEDS: XARELTO PO SCH (05:29)
[2017-03-19 05:45] LABS: HEMATOCRIT 37.9 % (42.0-52.0); MCH 25.1 PG (27-31); MCHC 31.7 g/dL (33-37); MCV 79.3 FL (81-99); MPV 10.1 FL (7.4-10.4); RBC 4.78 XMIL (4.7-6.1)
[2017-03-19 06:08] LABS: AGAP 12; BUN 24 mg/dL (8-22); CALCIUM 8.7 mg/dL (8.8-10.2); CHLORIDE 101 mmol/L (98-107); COSMO 289; POTASSIUM 4.1 mmol/L (3.5-5.1); SODIUM 142 mmol/L (136-145); TCO2 29 mmol/L (25-35)
[2017-03-19] MEDS: CARDIZEM 100 MG/NS 100 MG/100 ML IVPB IV SCH ×3 (06:29→21:05)
[2017-03-19] MEDS ORDERED: VANCOMYCIN IV PER PHARMACY MISC SCH (06:30)
[2017-03-19] MEDS: MUCOMYST 20% INH SCH ×2 (07:59→19:34)
[2017-03-19] MEDS ORDERED: VANCOMYCIN 1 GM/NS 1 GM/250 ML IVPB IV ONE (08:00)
[2017-03-19] MEDS: MORPHINE IV PRN ×3 (08:05→18:31)
[2017-03-19] MEDS: LEVAQUIN 750 MG/D5W 750 MG/150 ML IVPB IV SCH (08:14)
[2017-03-19] MEDS: PERICOLACE PO SCH ×2 (08:16→23:26)
[2017-03-19] MEDS: LEXAPRO PO SCH (08:17)
[2017-03-19] MEDS: TAPAZOLE PO SCH ×2 (08:18→21:04)
[2017-03-19] MEDS: CENTRUM SILVER PO SCH (08:19)
[2017-03-19] MEDS: LASIX PO SCH (08:21)
[2017-03-19] MEDS: ASPIRIN EC PO SCH (08:21)
[2017-03-19] MEDS: FERROUS SULFATE PO SCH (08:21)
[2017-03-19] MEDS: SUBOXONE 8 MG/2 MG SL SCH ×2 (08:24→23:23)
--- NOTE | 2017-03-19 08:43 | Diag Imaging Result Document ---
PROCEDURE NAME: CHEST-PORTABLE - 03/19/2017 PORTABLE CHEST: COMPARISON: 03/17/2017. FINDINGS: The patient has a left sided pacemaker. The lungs are well expanded. Heart is mildly prominent. Mild central vascular distention similar to the prior exam. No consolidation. No pleural effusions identified. IMPRESSION: Stable chest.
--- NOTE | 2017-03-19 08:47 | PROGRESS NOTE ---
DATE: 03/19/2017 SUBJECTIVE: Mr. Sykes is postop day one after trochanteric femoral nailing for hip fracture. Mr. Sykes is lying in bed this morning. Pain seems well controlled. OBJECTIVE: Right lower extremity exam: Dressings are clean, dry, and intact. He is able to dorsiflex and plantar flex the foot and ankle very well. Good sensation on light touch of the toes. ASSESSMENT: Status post right trochanteric femoral nailing. PLAN: I am okay with Mr. Sykes being up and out of bed today with physical therapy. He is in ICU while they continue to regulate his heart rate. From an orthopedic standpoint, we are okay with him going to the floor. cc: Adam Zazueta MD
[2017-03-19] MEDS ORDERED: LOPRESSOR PO ONE (10:31)
--- NOTE | 2017-03-19 11:03 | PROGRESS NOTE ---
DATE: 03/19/2017 SUBJECTIVE: Overnight Mr. Sykes had difficulty with atrial fibrillation with rapid ventricular rate and relatively low blood pressure on intravenous Cardizem. Metoprolol was resumed and small fluid bolus was given. Patient also received intravenous digoxin. Heart rate came under better control and blood pressure improved. Diltiazem has been weaned and is currently on 10 mg/hour continuous drip. Patient denies any chest discomfort. He has no dyspnea on supplemental oxygen per nasal cannula. OBJECTIVE: Vital Signs: Blood pressure 140/86, heart rate 109 and irregular. Neck: There is no significant jugular venous distention. Chest: Auscultation of the chest reveals a few scattered rhonchi. There are no rales. Cardiac Exam: An irregular rate and rhythm without appreciable murmur or gallop. Extremities: There is no evidence of peripheral edema. IMPRESSION: 1. Chronic atrial fibrillation. Recent increased ventricular rate response, now improving. 2. Atherosclerotic coronary disease. Patient has history of chronic right coronary artery occlusion with collaterals. Left ventricular ejection fraction normal by echocardiography October 2016. The patient continues without angina. 3. Status post implantable defibrillator several years ago. Details not available. 4. Chronic obstructive pulmonary disease, significant. 5. Chronic ongoing cigarette use. 6. Status post recent right hip fracture and repair. 7. Hypertension. 8. Hyperlipidemia. RECOMMENDATIONS: 1. Continue metoprolol and supplement dose. 2. Wean off intravenous diltiazem. 3. Resume anticoagulation when acceptable from surgical standpoint. 4. Smoking cessation strongly advised. 5. Discontinue Lasix for now and reassess as patient progresses through his hospital stay. cc: Danny Galvan MD
--- NOTE | 2017-03-19 13:02 | PROGRESS NOTE ---
DATE: 03/19/2017 SUBJECTIVE: The patient is resting comfortably in bed. He is currently on a Cardizem drip and his heart rate is in the 140s-150s. He does complain of constipation. OBJECTIVE: Vital Signs: Temperature 97.3 degrees, blood pressure 140/86, heart rate 109, O2 saturations 95% on 5 L nasal cannula. General: This is a morbidly obese male, lying in bed, in no acute distress. Head: Normocephalic atraumatic. Heart: S1, S2. Normal. Irregularly irregular rhythm. Lungs: Coarse breath sounds bilaterally. Abdomen: Positive bowel sounds. Soft, obese, nontender, nondistended. Extremities: No edema. No cyanosis. Neurologic: The patient is alert and oriented x3. No focal neurologic deficits noted. LABS: White blood cell count 8.4, hemoglobin 12, hematocrit 37, platelets 189,000. Sodium 142, potassium 4.1, chloride 101, CO2 29, BUN 24, creatinine 0.6, glucose 134, calcium 8.7. ASSESSMENT AND PLAN: 1. Acute COPD exacerbation. Improving. Continue on the current medications. 2. Atrial fibrillation with rapid ventricular response. The patient remains on a Cardizem drip. Further management as per the applied research director. 3. Status post IM nailing of the right femur. Management as per the orthopedic surgeon. 4. Morbid obesity. Aware. 5. Constipation. We will start the patient on scheduled laxatives. 6. Hypertension. Controlled. 7. Hyperthyroidism. Continue on Tapazole. 8. Dyslipidemia. Continue on Pravachol. 9. Coronary artery disease. Aware. 10. Deep vein thrombosis prophylaxis. The patient is on Xarelto. cc: Leonor Handley MD
[2017-03-19] MEDS: LACTULOSE PO SCH (20:22)
[2017-03-19] MEDS: DULCOLAX PR SCH (20:22)
[2017-03-19] MEDS: VANCOMYCIN 2,000 MG in NS 500 ML IV SCH (20:24)
[2017-03-19] MEDS: PRAVACHOL PO SCH (20:39)
[2017-03-19] MEDS: DESYREL PO SCH (20:40)
[2017-03-19] MEDS: COLACE PO SCH (20:40)
[2017-03-19] MEDS: MIRALAX PO SCH (21:03)
[2017-03-19] MEDS: LOPRESSOR IV PRN (23:30)
[2017-03-20] MEDS: OXY IR PO PRN ×2 (00:09→20:16)
[2017-03-20] MEDS: CARDIZEM 100 MG/NS 100 MG/100 ML IVPB IV SCH ×3 (00:12→23:18)
[2017-03-20] MEDS: TYLENOL PO SCH ×3 (02:15→17:24)
[2017-03-20] MEDS: LOPRESSOR PO SCH ×4 (02:15→20:07)
[2017-03-20] MEDS: DUONEB (A & A) INH SCH ×6 (03:10→23:54)
[2017-03-20] MEDS: MORPHINE IV PRN ×3 (04:38→17:23)
[2017-03-20 05:29] LABS: MANUAL DIFF NEEDED? NO
[2017-03-20 05:35] LABS: EOS# 0.01 X1000 (0.0-0.7); EOS% 0.1 % (0.0-10.0); HEMATOCRIT 40.6 % (42.0-52.0); IMM GRAN# 0.04 X1000 (0.0-0.04); IMM GRAN% 0.3 % (0.0-0.5); LYMPH# 1.05 X1000 (1.2-3.4); LYMPH% 8.4 % (20.5-51.1); MCH 25.1 PG (27-31); MCV 78.4 FL (81-99); MONO# 1.05 X1000 (0.11-0.59); MONO% 8.4 % (1.7-9.3); MPV 9.9 FL (7.4-10.4); NEUT% 82.8 % (42.2-75.2); PLT 217 X1000 (130-400); RBC 5.18 XMIL (4.7-6.1)
[2017-03-20 06:03] LABS: AGAP 13; BUN 26 mg/dL (8-22); CALCIUM 8.6 mg/dL (8.8-10.2); CHLORIDE 99 mmol/L (98-107); COSMO 282; POTASSIUM 4.1 mmol/L (3.5-5.1); SODIUM 138 mmol/L (136-145); TCO2 26 mmol/L (25-35)
[2017-03-20] MEDS: XARELTO PO SCH (06:06)
[2017-03-20] MEDS: LOPRESSOR IV PRN (06:41)
[2017-03-20] MEDS: MUCOMYST 20% INH SCH ×2 (07:45→19:20)
[2017-03-20] MEDS: VANCOMYCIN 2,000 MG in NS 500 ML IV SCH ×2 (08:02→20:40)
[2017-03-20] MEDS: LEVAQUIN 750 MG/D5W 750 MG/150 ML IVPB IV SCH (08:02)
[2017-03-20] MEDS: FERROUS SULFATE PO SCH (08:03)
[2017-03-20] MEDS: SOLU-MEDROL IV SCH ×2 (08:03→20:39)
[2017-03-20] MEDS: LEXAPRO PO SCH (08:04)
[2017-03-20] MEDS: ASPIRIN EC PO SCH (08:05)
[2017-03-20] MEDS: TAPAZOLE PO SCH ×2 (08:05→20:08)
[2017-03-20] MEDS: PERICOLACE PO SCH ×2 (08:08→20:08)
[2017-03-20] MEDS: CENTRUM SILVER PO SCH (08:08)
[2017-03-20] MEDS: MIRALAX PO SCH ×2 (08:09→23:19)
[2017-03-20] MEDS: LACTULOSE PO SCH ×2 (08:09→23:20)
[2017-03-20] MEDS: SUBOXONE 8 MG/2 MG SL SCH ×2 (08:10→21:46)
[2017-03-20] MEDS ORDERED: LANOXIN IV ONE ×2 (10:01→14:00)
--- NOTE | 2017-03-20 10:41 | PROGRESS NOTE ---
DATE: 03/20/2017 SUBJECTIVE: Patient continues without dyspnea or chest discomfort. Intravenous diltiazem was discontinued earlier this morning and patient has demonstrated progressive increase in heart rate, response to atrial fibrillation. OBJECTIVE: Vital Signs: Blood pressure 103/75. Heart rate 128 to 145 with ECG monitor showing atrial fibrillation with rapid ventricular rate. Neck: There is no significant jugular venous distention. Chest: Auscultation of the chest reveals no rales. There is scant diffuse rhonchi. Cardiac exam: Reveals an irregular tachycardia without appreciable murmur or gallop. There is no evidence of peripheral edema. IMPRESSIONS: 1. Chronic atrial fibrillation. Ventricular rate response again increased following cessation of intravenous diltiazem. 2. Atherosclerotic coronary disease with history of previous coronary angioplasty/stenting in the past as well as chronic right coronary artery occlusion with collaterals. Left ventricular ejection fraction normal by echocardiography October 2016. Patient continues without angina. 3. Status post implantable defibrillator several years ago. Details not available. 4. Chronic obstructive pulmonary disease, significant. 5. Chronic, ongoing cigarette use. 6. Status post recent right hip fracture and repair. 7. Hypertension. 8. Hyperlipidemia. RECOMMENDATIONS: 1. Continue metoprolol at current dose, 25 mg p.o. q.6 hours. 2. Give additional intravenous digoxin and continue. 3. Hold diuretic therapy for right now. He may be somewhat relatively intravascular volume depleted postoperatively due to 3rd spacing. cc: Danny Galvan MD
--- NOTE | 2017-03-20 13:38 | PROGRESS NOTE ---
DATE: 03/20/2017 SUBJECTIVE: The patient is resting comfortably in bed. He states that he did have a bowel movement last night and this morning. The patient was taken off of the Cardizem drip. However his heart rate increased into the 140s to 150 so the Cardizem drip was started. The patient has no other complaints. OBJECTIVE: Vital Signs: Temperature 97.8 degrees, blood pressure 103/75, heart rate 145, respirations 28, O2 saturations 93% on 3 L nasal cannula. General: This is a elderly male lying in bed in no acute distress. Head: Normocephalic, atraumatic. Heart: S1, S2. Normal. Irregularly irregular rhythm. Lungs: Coarse breath sounds bilaterally. Abdomen: Positive bowel sounds. Soft, nontender, nondistended. Extremities: No edema. No cyanosis. No calf tenderness. Neurologic: The patient is alert, oriented x3. LABS: White blood cell count 12, hemoglobin 13, hematocrit 40, platelets 217,000. Sodium 138, potassium 4.1, chloride 99, CO2 26, BUN 23, creatinine 0.5, glucose 121, calcium 8.6. ASSESSMENT AND PLAN: 1. Atrial fibrillation with rapid ventricular response. The patient remains on a Cardizem drip. Cardiology is currently titrating the patient's oral medications. Continue on Xarelto. 2. Acute chronic obstructive pulmonary disease exacerbation. Continue bronchodilator therapy, steroids and antibiotics. Pulmonary is following. 3. Status post intramedullary nailing of the right femur. Management as per the orthopedic surgeon. 4. Hypertension. Controlled. 5. Hyperthyroidism. Continue on Tapazole. 6. Morbid obesity. Aware. 7. Coronary artery disease. Aware. 8. Dyslipidemia. Continue on Pravachol. 9. Gastrointestinal prophylaxis. Continue on omeprazole. cc: Leonor Handley MD
[2017-03-20] MEDS: COLACE PO SCH (20:07)
[2017-03-20] MEDS: PRAVACHOL PO SCH (20:07)
[2017-03-20] MEDS: DESYREL PO SCH (20:08)
[2017-03-20] MEDS: HALDOL IV PRN (20:39)
[2017-03-20] MEDS: DULCOLAX PR SCH (21:45)
[2017-03-21] MEDS: TYLENOL PO SCH (02:17)
[2017-03-21] MEDS: LOPRESSOR PO SCH ×4 (02:17→20:03)
[2017-03-21] MEDS: OXY IR PO PRN ×2 (02:42→06:44)
[2017-03-21] MEDS: DUONEB (A & A) INH SCH ×5 (03:29→19:46)
[2017-03-21] MEDS: PRILOSEC PO SCH (06:37)
[2017-03-21] MEDS: XARELTO PO SCH (06:37)
[2017-03-21] MEDS: CARDIZEM 100 MG/NS 100 MG/100 ML IVPB IV SCH ×2 (06:38→20:02)
[2017-03-21 07:08] LABS: MANUAL DIFF NEEDED? NO
--- NOTE | 2017-03-21 07:09 | PROGRESS NOTE ---
DATE: 03/21/2017 SUBJECTIVE: The patient is 3 days status post intramedullary nailing of the right femur. He is currently resting comfortably. He has no significant complaints at this time. The patient is improving with medication with regards his increased ventricular rate response. PHYSICAL EXAMINATION: Musculoskeletal Exam: Patient's right lower extremity dressing is intact. Calf is soft. He has active dorsiflexion and plantar flexion. IMPRESSION: Postoperative day #3, status post intramedullary nailing right femur. PLAN: At this point, the patient will progress with physical therapy as tolerated. May be weightbearing as tolerated right lower extremity. The patient is stable from an orthopedic standpoint. We will be available if needed. cc: Dario Hui MD
[2017-03-21 07:32] LABS: AGAP 13; BUN 21 mg/dL (8-22); CALCIUM 8.3 mg/dL (8.8-10.2); CHLORIDE 102 mmol/L (98-107); COSMO 283; HEMATOCRIT 38.5 % (42.0-52.0); HEMOGLOBIN 12.4 g/dL (14.0-18.0); IMM GRAN# 0.05 X1000 (0.0-0.04); IMM GRAN% 0.6 % (0.0-0.5); LYMPH# 0.89 X1000 (1.2-3.4); LYMPH% 9.8 % (20.5-51.1); MCH 25.4 PG (27-31); MCHC 32.2 g/dL (33-37); MCV 78.7 FL (81-99); MONO# 0.65 X1000 (0.11-0.59); MONO% 7.2 % (1.7-9.3); MPV 10.6 FL (7.4-10.4); NEUT% 82.4 % (42.2-75.2); PLT 173 X1000 (130-400); POTASSIUM 4.6 mmol/L (3.5-5.1); RBC 4.89 XMIL (4.7-6.1); SODIUM 140 mmol/L (136-145); TCO2 25 mmol/L (25-35)
[2017-03-21] MEDS: MUCOMYST 20% INH SCH ×2 (07:40→19:46)
[2017-03-21] MEDS: LEVAQUIN 750 MG/D5W 750 MG/150 ML IVPB IV SCH (07:54)
[2017-03-21] MEDS: SOLU-MEDROL IV SCH ×2 (07:54→20:03)
[2017-03-21] MEDS: TAPAZOLE PO SCH ×2 (07:59→20:07)
[2017-03-21] MEDS: LEXAPRO PO SCH (07:59)
[2017-03-21] MEDS: FERROUS SULFATE PO SCH (07:59)
[2017-03-21] MEDS: CENTRUM SILVER PO SCH (07:59)
[2017-03-21] MEDS: ASPIRIN EC PO SCH (07:59)
[2017-03-21] MEDS: LACTULOSE PO SCH ×2 (08:00→20:04)
[2017-03-21] MEDS: MIRALAX PO SCH ×2 (08:00→20:03)
[2017-03-21] MEDS: PERICOLACE PO SCH ×2 (08:00→20:07)
[2017-03-21] MEDS: SUBOXONE 8 MG/2 MG SL SCH (08:00)
--- NOTE | 2017-03-21 08:03 | Diag Imaging Result Document ---
PROCEDURE NAME: CHEST-PORTABLE - 03/21/2017 AP PORTABLE CHEST, 03/21/2017 AT 0500 HOURS: FINDINGS: The left costophrenic angle is clipped off the film. There is some prominence of the pulmonary vascularity and minimal interstitial opacity which may indicate pulmonary edema. This has not changed appreciably since the previous study of 03/19/2017. IMPRESSION: Stable chest.
[2017-03-21] MEDS: VANCOMYCIN 2,000 MG in NS 500 ML IV SCH ×2 (08:52→20:03)
[2017-03-21] MEDS ORDERED: NEOSTIGMINE ONE (09:37)
[2017-03-21] MEDS ORDERED: ZOFRAN ONE (09:37)
[2017-03-21] MEDS ORDERED: NORCURON ONE (09:37)
[2017-03-21] MEDS ORDERED: ROBINUL ONE (09:37)
[2017-03-21] MEDS ORDERED: ANESTHESIA PB SET 88 IN 5742 ONE (09:38)
[2017-03-21] MEDS ORDERED: LR 1,000 ML ONE (09:38)
[2017-03-21] MEDS ORDERED: EXTENSION SET 32 IN 4522 ONE (09:38)
[2017-03-21] MEDS ORDERED: QUELICIN (DOSE) ONE (09:38)
[2017-03-21] MEDS ORDERED: XYLOCAINE-MPF 2% ONE (09:38)
--- NOTE | 2017-03-21 10:09 | PROGRESS NOTE ---
DATE: 03/21/2017 SUBJECTIVE: Patient reports feeling fine. Mild pain in the right hip. Denies chest pain. Denies shortness of breath. Denies palpitations. OBJECTIVE: Vital Signs: Temperature 98.0 degrees, heart rate 116, blood pressure 126/82, respiratory rate 22, blood pressure 98% on 3 L nasal cannula. General Examination: This is a 66- year-old male, lying in bed, in no acute distress. HEENT: Head is normocephalic, atraumatic. Anicteric sclerae. Pale conjunctivae. Mucous membranes moist. Neck: Supple. No JVD noted. No carotid bruits. No lymphadenopathy. No thyromegaly. Cardiovascular: S1, S2 heard. Irregularly irregular heart rhythm. No murmurs, gallops, or rubs. Respiratory: Coarse breath sounds still present in both bases. Patient is not using any accessory muscles or having work of breathing. Abdomen: Soft. Nontender to palpation. Bowel sounds present. No organomegaly. Extremities: No clubbing, cyanosis, or edema. Peripheral pulses present in both legs. Neurological: Patient is alert and oriented x3. Able to move 4 extremities. Cranial nerves 2 through 12 grossly normal. LABORATORY DATA: White cell count 9.04, hemoglobin 12.4, hematocrit 38.5, platelets 173,000. BMP completely unremarkable. ASSESSMENT AND PLAN: 1. Atrial fibrillation with rapid ventricular response. Patient is still requiring Cardizem IV. Heart rate has been up and down and at this time is receiving 5 mg of Cardizem that could be increased to 10. Cardiology is following this patient. Patient is on Xarelto already. 2. Acute chronic obstructive pulmonary disease exacerbation. We will continue with bronchodilators, steroids, and antibiotics. The patient is requiring 3 L of oxygen by nasal cannula. Pulmonary is following this patient as well. 3. Status post intramedullary nailing of right femur. Orthopedic surgeon has seen this patient today and they think that this patient can be weight beating. Physical therapy on board, walking this patient. They have signed out today. 4. Hypertension. Blood pressure is well controlled. We will continue with the same management. 5. Hyperthyroidism. We will continue with Tapazole. 6. Morbid obesity, aware. 7. Coronary artery disease. Patient is not complaining of any chest pain. We will continue with the same management. 8. Dyslipidemia. Will continue with Pravachol. 9. Gastrointestinal prophylaxis. We will continue with omeprazole. 10. Overall this patient is doing good. Because the only reason why this patient is in the intensive care unit is because of the atrial fibrillation with RVR on Cardizem drip, we are going to transfer this patient to [facility] today. cc: Salinas Murillo MD
[2017-03-21] MEDS ORDERED: CARDIZEM 100 MG/NS 100 MG/100 ML IVPB IV SCH (12:11)
[2017-03-21] MEDS: MORPHINE IV PRN ×3 (12:40→21:37)
--- NOTE | 2017-03-21 12:41 | PROGRESS NOTE ---
DATE: 03/21/2017 SUBJECTIVE: Mr. Sykes reports his pain is doing much better. He is currently getting ready to work with physical therapy. OBJECTIVE: Vital Signs: He is afebrile. His heart rate is currently in the 120s. His blood pressure is 113/81. General: No acute distress. Cardiovascular: He is in an irregularly irregular, mildly tachycardic rhythm. He has no obvious murmurs. No S3. He has no lower extremity edema. Chest: Sounds clear to auscultation bilaterally. No increased work of breathing. Abdomen: Soft, nontender, nondistended. No obvious organomegaly. PERTINENT DATA: White count is 9, hematocrit is 38.5, platelet count is 173,000. Sodium 140, potassium 4.6, BUN 21, creatinine 0.5. ASSESSMENT: 1. Atrial fibrillation with rapid ventricular response. 2. Status post right hip fracture repair. PLAN: Patient continues on Xarelto presently. He is on digoxin IV which he received yesterday. He is on metoprolol 25 q.6 h. as well as diltiazem infusion currently at 10 mg an hour. I will adjust that to titrate for heart rate less than 120. Hopefully with more ambulation and better pain control, patient's heart rate will come under control. cc: George Reina MD
[2017-03-21] MEDS: HALDOL IV PRN ×2 (16:30→21:38)
[2017-03-21] MEDS: LOPRESSOR IV PRN (17:45)
[2017-03-21] MEDS: DULCOLAX PR SCH (20:04)
[2017-03-21] MEDS: COLACE PO SCH (20:04)
[2017-03-21] MEDS: DESYREL PO SCH (20:04)
[2017-03-21] MEDS: PRAVACHOL PO SCH (20:07)
[2017-03-22] MEDS: MORPHINE IV PRN ×8 (00:56→23:12)
[2017-03-22] MEDS: DUONEB (A & A) INH SCH ×7 (01:43→23:25)
[2017-03-22] MEDS: LOPRESSOR PO SCH ×4 (03:43→20:03)
[2017-03-22] MEDS: CARDIZEM 100 MG/NS 100 MG/100 ML IVPB IV SCH ×4 (05:38→18:37)
[2017-03-22] MEDS: XARELTO PO SCH (05:42)
[2017-03-22] MEDS: PRILOSEC PO SCH (06:15)
[2017-03-22 06:51] LABS: MANUAL DIFF NEEDED? NO
[2017-03-22 06:54] LABS: BASO% 0.1 % (0.0-0.8); EOS# 0.01 X1000 (0.0-0.7); EOS% 0.1 % (0.0-10.0); HEMATOCRIT 38.5 % (42.0-52.0); HEMOGLOBIN 12.5 g/dL (14.0-18.0); IMM GRAN% 0.7 % (0.0-0.5); LYMPH# 1.22 X1000 (1.2-3.4); LYMPH% 8.3 % (20.5-51.1); MCH 25.4 PG (27-31); MCHC 32.5 g/dL (33-37); MCV 78.1 FL (81-99); MONO# 1.02 X1000 (0.11-0.59); MONO% 6.9 % (1.7-9.3); MPV 10.2 FL (7.4-10.4); NEUT% 83.9 % (42.2-75.2); PLT 196 X1000 (130-400); RBC 4.93 XMIL (4.7-6.1)
[2017-03-22 07:18] LABS: AGAP 13; BUN 19 mg/dL (8-22); CALCIUM 8.8 mg/dL (8.8-10.2); CHLORIDE 101 mmol/L (98-107); COSMO 278; POTASSIUM 4.5 mmol/L (3.5-5.1); SODIUM 138 mmol/L (136-145); TCO2 24 mmol/L (25-35)
[2017-03-22] MEDS: MUCOMYST 20% INH SCH ×2 (07:51→19:50)
[2017-03-22] MEDS: LEVAQUIN 750 MG/D5W 750 MG/150 ML IVPB IV SCH (08:21)
[2017-03-22] MEDS: VANCOMYCIN 2,000 MG in NS 500 ML IV SCH ×2 (08:22→20:02)
[2017-03-22] MEDS: MIRALAX PO SCH ×2 (08:22→20:02)
[2017-03-22] MEDS: LACTULOSE PO SCH ×2 (08:22→20:02)
[2017-03-22] MEDS: ASPIRIN EC PO SCH (08:23)
[2017-03-22] MEDS: SOLU-MEDROL IV SCH (08:23)
[2017-03-22] MEDS: CENTRUM SILVER PO SCH (08:23)
[2017-03-22] MEDS: PERICOLACE PO SCH ×2 (08:23→20:04)
[2017-03-22] MEDS: FERROUS SULFATE PO SCH (08:24)
[2017-03-22] MEDS: LEXAPRO PO SCH (08:24)
[2017-03-22] MEDS: TAPAZOLE PO SCH ×2 (08:30→20:03)
[2017-03-22] MEDS ORDERED: LANOXIN IV ONE (12:47)
--- NOTE | 2017-03-22 13:07 | PROGRESS NOTE ---
DATE: 03/22/2017 INDICATION: Atrial fibrillation. SUBJECTIVE: Mr. Sykes reports he is doing better. He is ambulating with physical therapy. OBJECTIVE: Vital Signs: On physical examination he is afebrile. His heart rates have been somewhat variable. This morning they have been in the 100s-120s. Systolic blood pressures in the 110s to 130s. General: Generally, no acute distress. Cardiovascular: He is in an irregularly irregular tachycardic rhythm. He has no obvious murmurs. No S3. No lower extremity edema. Chest: Exam has very coarse bilateral breath sounds. No increased work of breathing. Abdomen: Soft, nontender, nondistended. He has no obvious organomegaly. Skin Exam: Warm and dry throughout. PERTINENT DATA: White count is 14.7, hematocrit is 38.5, platelet count is 196. Sodium 138, potassium 4.5, BUN 19, creatinine 0.5. ASSESSMENT: 1. Atrial fibrillation. 2. Hip fracture. PLAN: I will place him on diltiazem 60 q. 6 hours and give him 250 mcg of IV digoxin. We will try to transition him over to oral medications. Continue him on metoprolol for now. cc: George Reina MD
[2017-03-22] MEDS: CARDIZEM PO SCH ×2 (13:13→20:03)
--- NOTE | 2017-03-22 16:07 | PROGRESS NOTE ---
DATE: 03/22/2017 SUBJECTIVE: The patient reports still hurting in the right hip. Denies any chest pain. Denies any fevers, chills or palpitations. OBJECTIVE: Vitals: Temperature 97.1, heart rate 114, respiratory rate 27, blood pressure 113/85, O2 saturation 94% on room air. General: This is a 66-year-old male lying in bed in no acute distress. HEENT: Head is normocephalic and atraumatic. Nonicteric sclera. Pale conjunctivae. Mucous membranes moist. Neck: Supple. No JVD. No carotid bruits. No lymphadenopathy. No thyromegaly. Cardiovascular: S1, S2 heard. Irregular/regular heart rhythm. No murmurs, gallops, or rubs. Respiratory: Breath sounds still present in both bases but patient is not using any accessory muscles requiring work with breathing. Abdomen: Soft, nontender to palpation. Bowel sounds present. No organomegaly. Extremities: No clubbing, cyanosis, edema. Peripheral pulses present in both legs. Neurological: Patient is alert and oriented x3. Able to move her extremities. Cranial nerves II-XII grossly normal. LABORATORY DATA: White cell count 14.73, hemoglobin 12.5, hematocrit 38.5, platelets 196,000. BMP completely unremarkable. ASSESSMENT AND PLAN: 1. Atrial fibrillation with rapid ventricular response. The patient is still on Cardizem drip and actually the doses of Cardizem have gone up from 5 to 10 today. The patient is going to need 15 because her heart rate has been going to 140s and 150s. Also the patient is receiving Cardizem oral and metoprolol IV. Cardiology is also following and we will see how this patient does. 2. Chronic obstructive pulmonary disease exacerbation. The patient is on bronchodilators, steroids and antibiotics and considering there has been a jump in white cell count from normal limits to almost 15,000, I think we will decrease the dose of from 20 mg IV q.12 hours to 20 mg daily. Will check CBC tomorrow. 3. Status post intramedullary nailing of the right femur. Orthopedic Surgery has been following this patient. They are okay to send this patient to the rehab facility. They have signed it off. 4. Hypertension. Blood pressure is between 100-130s. Will continue with same management. 5. Hypothyroidism. Will continue with Tapazole. 6. Morbid obesity. Aware. 7. Coronary artery disease. The patient is not complaining of any chest pain at all. Will continue with home medications. 8. Dyslipidemia. Will continue with Pravachol which is the home medication. 9. GI prophylaxis with omeprazole. Overall this patient is doing good. We have transferred this patient to the [facility] because the only reason why this patient is in the ICU is because of a Cardizem drip. As soon as we are able to control the heart rate, we will transferred this patient to the rehab facility. cc: Salinas Murillo MD
[2017-03-22] MEDS: DESYREL PO SCH (20:03)
[2017-03-22] MEDS: COLACE PO SCH (20:03)
[2017-03-22] MEDS: DULCOLAX PR SCH (20:03)
[2017-03-22] MEDS: PRAVACHOL PO SCH (20:04)
[2017-03-22] MEDS: HALDOL IV PRN (20:54)
[2017-03-23] MEDS: CARDIZEM 100 MG/NS 100 MG/100 ML IVPB IV SCH ×4 (00:26→21:25)
[2017-03-23] MEDS: CARDIZEM PO SCH ×4 (02:37→20:26)
[2017-03-23] MEDS: LOPRESSOR PO SCH ×4 (02:37→20:26)
[2017-03-23] MEDS: DUONEB (A & A) INH SCH ×6 (03:35→23:23)
[2017-03-23] MEDS: MORPHINE IV PRN ×7 (04:05→22:26)
[2017-03-23] MEDS: XARELTO PO SCH (05:35)
[2017-03-23] MEDS: PRILOSEC PO SCH (06:51)
[2017-03-23] MEDS: MIRALAX PO SCH ×2 (08:02→20:29)
[2017-03-23] MEDS: SOLU-MEDROL IV SCH (08:02)
[2017-03-23] MEDS: LACTULOSE PO SCH ×2 (08:03→20:29)
[2017-03-23] MEDS: CENTRUM SILVER PO SCH (08:03)
[2017-03-23] MEDS: LEVAQUIN 750 MG/D5W 750 MG/150 ML IVPB IV SCH (08:03)
[2017-03-23] MEDS: FERROUS SULFATE PO SCH (08:03)
[2017-03-23] MEDS: LEXAPRO PO SCH (08:03)
[2017-03-23] MEDS: PERICOLACE PO SCH ×2 (08:04→20:29)
[2017-03-23] MEDS: ASPIRIN EC PO SCH (08:04)
[2017-03-23] MEDS: TAPAZOLE PO SCH ×2 (08:06→20:29)
[2017-03-23] MEDS: VANCOMYCIN 2,000 MG in NS 500 ML IV SCH ×2 (08:06→20:25)
[2017-03-23] MEDS: MUCOMYST 20% INH SCH ×2 (09:40→19:07)
--- NOTE | 2017-03-23 09:45 | PROGRESS NOTE ---
DATE: 03/23/2017 SUBJECTIVE: Mr. Sykes is doing well. He is sitting up at bedside. Has some hip pain, but overall no other complaints. PHYSICAL EXAMINATION: Vital Signs: He is afebrile. The last 3 heart rate checks since midnight have been in the 70s to 90s. His blood pressure is 99/60. General: No acute distress. Cardiovascular: He is in an irregularly irregular rhythm. No murmurs. Rate controlled. Extremities: No lower extremity edema. Chest Examination: Sounds clear to auscultation bilaterally. DATA: He has no recent laboratory data. ASSESSMENT: 1. Atrial fibrillation. 2. Hip fracture. PLAN: Patient is on a 5 mg dose of diltiazem IV. I have instructed the nurse, considering he is on oral diltiazem, we will cut the dose in half at the time of his oral dose this morning and if 30 minutes later he is doing okay turn it off. He is also on metoprolol. He was given a dose of digoxin yesterday as well. We will follow up on his heart rate later on today. cc: George Reina MD
--- NOTE | 2017-03-23 10:18 | PROGRESS NOTE ---
DATE: 03/23/2017 SUBJECTIVE: Patient reports mild pain in the right hip. Denies any sensation of palpitations, chest pain, fever, or chills. OBJECTIVE: Vital Signs: Temperature 97.5 degrees, heart rate 74, respiratory rate 15, blood pressure 99/60, O2 saturation 92% on room air. General Examination: This is a 66-year-old male, lying in bed, in no acute distress. HEENT: Head is normocephalic, atraumatic. Anicteric sclerae. Pale conjunctivae. Mucous membranes moist. Neck: Supple. No JVD noted. No carotid bruits. No lymphadenopathy. No thyromegaly. Cardiovascular Exam: S1, S2 heard. Irregularly irregular heart rhythm. No murmurs, gallops, or rubs. Respiratory: Breath sounds are still present in both bases but patient is not using any accessory muscles or having work of breathing. Abdomen: Soft. Nontender to palpation. Bowel sounds present. No organomegaly. Extremities: No clubbing, cyanosis, or edema. Peripheral pulses present in both legs. Neurological: Patient is alert and oriented x3. Able to move 4 extremities. Cranial nerves 2 through 12 grossly normal. LABORATORY DATA: There is no CBC from today or BMP. ASSESSMENT AND PLAN: 1. Atrial fibrillation with rapid ventricular response. Patient is on Cardizem drip and at this time it is at 5 mg per hour. Patient has received IV digoxin 250 mcg and also patient is on metoprolol as well. The patient also has been started on Cardizem 60 mg 6 hours. Will see how this patient does today. Cardiology is also following this patient. 2. Chronic obstructive pulmonary disease exacerbation. Patient is on bronchodilator, steroids, and antibiotics. There is no CBC today. We are going to check it tomorrow. In any case, because we have seen a jump white blood count, yesterday we decreased the dose of Solu-Medrol from 20 q.12 hours to 20 daily. 3. Status post intramedullary nailing of the right femur. Orthopedic surgery has signed off. This patient can go to rehab facility. 4. Hypertension. Blood pressure is stable, between 100 and 130. 5. Hyperthyroidism. Will continue with Tapazole. 6. Morbid obesity, aware. 7. Coronary artery disease. Patient is not complaining of any chest pain. We will continue home medications. 8. Dyslipidemia. Will continue Pravachol. 9. Gastrointestinal prophylaxis. We will continue with omeprazole. cc: Salinas Murillo MD
[2017-03-23] MEDS: BIDEX PO SCH ×2 (16:57→20:26)
[2017-03-23] MEDS: LOPRESSOR IV PRN (18:10)
[2017-03-23] MEDS: DESYREL PO SCH (20:26)
[2017-03-23] MEDS: DULCOLAX PR SCH (20:29)
[2017-03-23] MEDS: PRAVACHOL PO SCH (20:29)
[2017-03-23] MEDS: COLACE PO SCH (21:24)
[2017-03-24] MEDS: CARDIZEM PO SCH ×4 (02:07→20:20)
[2017-03-24] MEDS: LOPRESSOR PO SCH ×4 (02:07→20:20)
[2017-03-24] MEDS: DUONEB (A & A) INH SCH ×6 (03:48→23:31)
[2017-03-24 05:23] LABS: MANUAL DIFF NEEDED? NO
[2017-03-24 05:27] LABS: BASO% 0.1 % (0.0-0.8); EOS# 0.16 X1000 (0.0-0.7); EOS% 1.1 % (0.0-10.0); HEMATOCRIT 39.1 % (42.0-52.0); HEMOGLOBIN 12.5 g/dL (14.0-18.0); IMM GRAN# 0.39 X1000 (0.0-0.04); IMM GRAN% 2.7 % (0.0-0.5); LYMPH# 2.66 X1000 (1.2-3.4); LYMPH% 18.7 % (20.5-51.1); MCH 25.2 PG (27-31); MCV 78.8 FL (81-99); MONO# 1.25 X1000 (0.11-0.59); MONO% 8.8 % (1.7-9.3); MPV 9.6 FL (7.4-10.4); NEUT% 68.6 % (42.2-75.2); PLT 233 X1000 (130-400); RBC 4.96 XMIL (4.7-6.1)
[2017-03-24 05:51] LABS: AGAP 11; ALBUMIN 3.3 g/dL (3.5-5.0); ALKALINE PHOSPHATASE 57 U/L (32-122); BUN 18 mg/dL (8-22); CALCIUM 8.8 mg/dL (8.8-10.2); CHLORIDE 100 mmol/L (98-107); COSMO 276; GOT 17 U/L (10-34); GPT 45 U/L (10-44); MAGNESIUM 2.3 mg/dL (1.5-2.7); POTASSIUM 4.4 mmol/L (3.5-5.1); SODIUM 138 mmol/L (136-145); TCO2 27 mmol/L (25-35); TOTAL BILIRUBIN 1.49 mg/dL (0.20-1.00); TOTAL PROTEIN 5.6 g/dL (6.3-8.3)
[2017-03-24] MEDS: XARELTO PO SCH (05:51)
[2017-03-24] MEDS: PRILOSEC PO SCH ×2 (06:04→06:06)
[2017-03-24] MEDS: MORPHINE IV PRN ×4 (06:36→20:19)
[2017-03-24] MEDS: MUCOMYST 20% INH SCH ×2 (07:26→19:57)
--- NOTE | 2017-03-24 07:45 | Diag Imaging Result Document ---
PROCEDURE NAME: CHEST-2 VIEWS - 03/23/2017 TWO VIEWS OF CHEST: FINDINGS: There is a pacemaker on the left. There is no evidence of acute cardiac or pulmonary disease. The left hemidiaphragm is elevated as it was on the previous study of 03/21/2017 and 03/19/2017. IMPRESSION: Stable chest.
[2017-03-24] MEDS: FERROUS SULFATE PO SCH (08:23)
[2017-03-24] MEDS: TAPAZOLE PO SCH ×2 (08:23→20:20)
[2017-03-24] MEDS: CENTRUM SILVER PO SCH (08:23)
[2017-03-24] MEDS: BIDEX PO SCH ×2 (08:23→20:20)
[2017-03-24] MEDS: ASPIRIN EC PO SCH (08:23)
[2017-03-24] MEDS: CARDIZEM 100 MG/NS 100 MG/100 ML IVPB IV SCH ×2 (08:24→18:20)
[2017-03-24] MEDS: LEXAPRO PO SCH (08:24)
[2017-03-24] MEDS: SOLU-MEDROL IV SCH (08:24)
[2017-03-24] MEDS: PERICOLACE PO SCH ×2 (08:24→20:20)
[2017-03-24] MEDS: MIRALAX PO SCH ×2 (08:24→20:21)
[2017-03-24] MEDS: LEVAQUIN 750 MG/D5W 750 MG/150 ML IVPB IV SCH (08:24)
[2017-03-24] MEDS: VANCOMYCIN 2,000 MG in NS 500 ML IV SCH ×2 (10:19→23:13)
--- NOTE | 2017-03-24 17:11 | PROGRESS NOTE ---
DATE: 03/24/2017 SUBJECTIVE: Patient reports feeling fine. Denies any chest pain, chest palpitations or fevers or chills. OBJECTIVE: Vital Signs: Temperature 98.4 degrees, heart rate 81, respiratory rate 15, blood pressure 101/70, O2 saturation 97% on room air. General Examination: This is a 66-year-old male, lying in bed, in no acute distress. HEENT: Head is normocephalic, atraumatic. Anicteric sclerae and pale conjunctivae. Mucous membranes moist. Neck: Supple. No JVD noted. No carotid bruits. No lymphadenopathy. No thyromegaly. Cardiovascular: S1, S2 heard. Irregularly irregular heart rhythm. No murmurs, gallops, or rubs. Regular rate and rhythm. Respiratory Exam: No JVD. No carotid bruits. No lymphadenopathy. Cardiovascular exam: S1, S2 heard, irregularly irregular. No murmurs, gallops, or rubs. Abdomen: Soft, nontender to palpation. Bowel sounds present. No organomegaly. Extremities: No clubbing, cyanosis, or edema. Peripheral pulses present in both legs. Neurological: Patient is alert and oriented x3. Able to move 4 extremities. Cranial nerves 2-12 grossly normal. LABORATORY DATA: Reviewed. ASSESSMENT AND PLAN: 1. Atrial fibrillation with rapid ventricular response. That condition has been finally controlled. Cardizem drip has been stopped yesterday and by now, the patient has received 1 dose of 250 mcg of digoxin, metoprolol and also Cardizem 60 mg p.o. q.6 hours. We will continue with this medication and we will see what Cardiology has to say. 2. COPD. Patient is not on any exacerbation but we are going to continue with bronchodilator and steroid and antibiotic from today. 3. Status post intramedullary nailing of the right femur. Orthopedic Surgery has signed off and they are okay to send this patient to rehab facility. 4. Hypertension. Blood pressure is stable. 5. Hyperthyroidism. We will continue with Tapazole. 6. Morbid obesity, aware. 7. Coronary artery disease. Patient is not complaining of any chest pain. We will continue home medications. 8. Dyslipidemia. We will continue with Pravachol. 9. GI prophylaxis. We will continue with omeprazole. cc: Salinas Murillo MD
[2017-03-24] MEDS: DESYREL PO SCH (20:21)
[2017-03-24] MEDS: PRAVACHOL PO SCH (20:21)
[2017-03-24] MEDS: DULCOLAX PR SCH (20:38)
[2017-03-25] MEDS: MORPHINE IV PRN ×3 (03:57→12:14)
[2017-03-25] MEDS: LOPRESSOR PO SCH ×3 (04:02→16:31)
[2017-03-25] MEDS: CARDIZEM 100 MG/NS 100 MG/100 ML IVPB IV SCH ×2 (04:02→14:15)
[2017-03-25] MEDS: CARDIZEM PO SCH ×3 (04:02→16:31)
[2017-03-25] MEDS: DUONEB (A & A) INH SCH ×4 (04:15→16:10)
[2017-03-25 05:34] LABS: MANUAL DIFF NEEDED? NO
[2017-03-25 05:43] LABS: BASO% 0.2 % (0.0-0.8); EOS# 0.19 X1000 (0.0-0.7); EOS% 1.1 % (0.0-10.0); HEMATOCRIT 41.6 % (42.0-52.0); HEMOGLOBIN 13.5 g/dL (14.0-18.0); IMM GRAN% 3.4 % (0.0-0.5); LYMPH# 3.41 X1000 (1.2-3.4); LYMPH% 19.4 % (20.5-51.1); MCH 25.5 PG (27-31); MCHC 32.5 g/dL (33-37); MCV 78.6 FL (81-99); MONO# 1.43 X1000 (0.11-0.59); MONO% 8.1 % (1.7-9.3); MPV 9.5 FL (7.4-10.4); NEUT% 67.8 % (42.2-75.2); PLT 280 X1000 (130-400); RBC 5.29 XMIL (4.7-6.1)
[2017-03-25] MEDS: PRILOSEC PO SCH (06:14)
[2017-03-25] MEDS: XARELTO PO SCH (06:14)
[2017-03-25] MEDS: MUCOMYST 20% INH SCH (08:06)
[2017-03-25] MEDS: LEXAPRO PO SCH (08:36)
[2017-03-25] MEDS: SOLU-MEDROL IV SCH (08:36)
[2017-03-25] MEDS: CENTRUM SILVER PO SCH (08:36)
[2017-03-25] MEDS: ASPIRIN EC PO SCH (08:37)
[2017-03-25] MEDS: FERROUS SULFATE PO SCH (08:37)
[2017-03-25] MEDS: BIDEX PO SCH (08:38)
[2017-03-25] MEDS: MIRALAX PO SCH (08:38)
[2017-03-25] MEDS: LEVAQUIN 750 MG/D5W 750 MG/150 ML IVPB IV SCH (08:39)
[2017-03-25] MEDS: TAPAZOLE PO SCH (09:38)
[2017-03-25] MEDS: PERICOLACE PO SCH (09:39)
[2017-03-25] MEDS: VANCOMYCIN 2,000 MG in NS 500 ML IV SCH (10:43)
[2017-03-25] MEDS ORDERED: LANOXIN PO SCH (11:45)
[2017-03-25] MEDS: LOPRESSOR IV PRN (12:14)
[2017-03-25 12:27] LABS: MAGNESIUM 2.1 mg/dL (1.5-2.7); POTASSIUM 4.6 mmol/L (3.5-5.1)
--- NOTE | 2017-03-25 13:13 | PROGRESS NOTE ---
DATE: 03/25/2017 SUBJECTIVE: Mr. Sykes is doing well. He just got back into bed. Has had some trouble with hip pain, but has been working with physical therapy. PHYSICAL EXAMINATION: Vital Signs: He is afebrile. His heart rates the majority of the time over the last 24 hours have been in the 50s to 90s. He has had occasional, only 3, episodes of heart rates above 100 and they have been between 103 and 131. He is not symptomatic with that. His blood pressure is 119/80. General: He is in no acute distress. HEENT: Oropharynx is moist. He has normal dentition. Cardiovascular: He is in a regular rate and rhythm. He has no obvious murmurs. He has no S3. He has no lower extremity edema. Chest: Clear to auscultation bilaterally. He has no increased work of breathing. Abdomen: Soft, nontender, and nondistended. He has no obvious organomegaly. Skin Exam: Warm and dry throughout. PERTINENT DATA: His white count is 17.6, hematocrit 41.6, and platelet count is 280,000. His potassium is 4.6. ASSESSMENT: 1. Atrial fibrillation. 2. Hip fracture. PLAN: His atrial fibrillation seems to be reasonably controlled. He has heart rate elevations during prolonged upright sitting, which causes pain in his hip area. In addition, he has some elevated heart rates associated with PT. These are very limited and are acceptable. I will continue him on the metoprolol, diltiazem, and digoxin as he is currently taking. From my standpoint, he may be discharged. I would continue him on Xarelto indefinitely for his stroke risk. cc: George Reina MD
--- NOTE | 2017-03-25 13:18 | EKG Report ---
Test Performed on : 03/25/2017 11:32:33 AM Test Reason : Rhythm change Blood Pressure : / mmHG Vent. Rate : 137 BPM Atrial Rate : 080 BPM P-R Int : 000 ms QRS Dur : 084 ms QT Int : 320 ms P-R-T Axes : 000 025 065 degrees QTc Int : 483 ms Atrial fibrillation. with rapid ventricular response. Abnormal ECG When compared with ECG of 16-MAR-2017 13:29, No significant change was found Confirmed by Compa COOPER, Efraín Umanzor ([id number]) on 03/26/2017 10:06:03 AM
--- NOTE | 2017-03-25 14:15 | DISCHARGE SUMMARY ---
ADMISSION DATE: 03/15/2017 DISCHARGE DATE: 03/25/2017 CONSULTATIONS: 1. George Reina MD with Cardiology. 2. Derrick Minaya MD with Pulmonology. 3. Dario Hui MD with orthopedics. PERTINENT PROCEDURES: 1. Head CT showed no hemorrhage. No injury. Atrophy with chronic microvascular ischemic changes. 2. Pelvis CT showed right femoral neck fracture which extends into the proximal femoral shaft with multiple fracture lines involving the proximal shaft and neck. 3. Intramedullary nailing of the right femur performed by Dr. Hui. DISCHARGE DIAGNOSES: 1. Atrial fibrillation with rapid ventricular response. The patient converted to sinus rhythm. Will continue on Xarelto and cardiac medications. Follow-up with Cardiology. 2. Right femur fracture status post intramedullary nailing performed by Dr. Hui. Will follow up with his office in 3-4 weeks. 3. Acute chronic obstructive pulmonary disease exacerbation, now resolved. Followed by Pulmonology. 4. Hypertension, controlled. 5. Hypothyroidism. Continue Tapazole. 6. Morbid obesity. Aware. 7. Coronary artery disease. Aware. 8. Dyslipidemia. Continue Pravachol. HOSPITAL COURSE: Mr. Sykes is a 66-year-old, male with a past medical history of COPD, hypothyroidism, hypertension, coronary artery disease who came to the ED complaining of sudden right hip pain after he was tripped by his garden hose. Once he fell he felt excruciating pain in the right hip. EMS was called. He denied hitting his head or losing consciousness. Head CT was negative. The patient was initially admitted for a right femoral neck fracture with Dr. Hui. Cardiology was consulted in reference to evaluation prior to his right hip fracture repair. The patient did go into persistent atrial fibrillation with RVR. He was continued on his aspirin. To resume his Xarelto after his postoperative repair for is atrial fibrillation. The patient was converted to sinus rhythm. He was cleared for surgery. Prior to that he went into a COPD exacerbation. Dr. Minaya was consulted. He underwent protocol for COPD exacerbation. On 03/18/2017 patient was able to undergo his intramedullary nailing of his right femur with Dr. Hui. He once again went into atrial fibrillation with RVR. He was started on a Cardizem drip as well as initiated on other beta blockers. The patient was cleared from orthopedic standpoint to be discharged on the , however, he was still being treated for in and out of atrial fibrillation with RVR with medication adjustments as well as continued to treat his COPD exacerbation. The patient's COPD exacerbation has resolved. He has maintained a normal sinus rhythm. The patient will be discharged to [facility] today. Vital signs at time of his discharge show temperature 98.4 degrees, heart rate 131. Patient appears to be back in atrial fibrillation on the monitor. Checking a stat EKG as well as stat potassium and magnesium. The patient will be held for 1 more day. Dictated by IMAN Michelle for Salinas Murillo MD cc: Salinas Murillo MD
--- NOTE | 2017-03-25 14:37 | DISCHARGE SUMMARY ---
ADMISSION DATE: 03/15/2017 DISCHARGE DATE: ADDENDUM HOSPITAL COURSE: Patient did go back into atrial fibrillation with RVR. He was given IV push with metoprolol as well as started on digoxin. Spoke with cardiology Dr. Peter. Reina. His atrial fibrillation is now reasonably controlled. His heart rate elevation occurred during prolonged upright sitting which causes pain in his hip area. In addition he has elevated heart rate associated with physical therapy. These are very limited and are acceptable. He will continue on metoprolol, diltiazem, digoxin and from cardiology standpoint he may be discharged to rehab today and continue on his Xarelto for his stroke risk. VITAL SIGNS: At the time of his discharge temperature 98.4 degrees, heart rate 120, respirations 15, blood pressure is 119/80, O2 is 98% on room air. DISCHARGE DIET: Healthy heart. DISCHARGE MEDICATIONS: 1. Aspirin 81 mg p.o. daily. 2. Suboxone 8 mg 2 mg sublingual 1 each sublingual b.i.d. 3. Clonidine 0.1 mg p.o. b.i.d. 4. 125 mcg p.o. daily. 5. Cardizem CD 300 mg p.o. daily. 6. Escitalopram oxalate 20 mg p.o. daily. 7. Lasix 80 mg p.o. daily. 8. Cozaar 25 mg p.o. daily. 9. Milk of magnesia 30 mL p.o. p.r.n. constipation. 10. Tapazole 10 mg p.o. daily. 11. Tapazole 5 mg p.o. at bedtime. 12. Medrol Dosepak. 13. Toprol-XL 50 mg p.o. b.i.d. 14. Centrum Silver 1 each daily. 15. Oxy IR 5-10 mg p.o. q.3 hours p.r.n. 16. Pravastatin 80 mg p.o. at bedtime. 17. Xarelto 20 mg p.o. daily. 18. Trazodone 100 mg p.o. at bedtime. 19. Co Q10, vitamin E, fish oil soft gel 1 tab p.o. daily. FOLLOW UP: Patient is being discharged to rehab. 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 Patient can return to the ED for any worsening of symptoms. DISCHARGE TIME: Greater than 30 minutes. Dictated by IMAN Michelle for Salinas Murillo MD cc: Salinas Murillo MD
[2017-03-25 15:54] VITALS: BP 119/89
[2017-03-25] MEDS: OXY IR PO PRN (16:27)
--- NOTE | 2017-05-17 01:46 | ED EKG INTERP ---
This chart was entered by Sophy Umana Scribe, acting as scribe for Eliecer Freedman MD. EKG Interpretation - EKG Time of EKG reading by physician:: 18:33 EKG Read and Signed by:: Eliecer Freedman EKG Interpretation (*Must complete 3 of following elements*): Abnormal Rate: 147 Rhythm: A-FIB W/ RVR QRS: normal ST Wave: non-specific ST changes (T WAV ABNORMALITY) This chart was documented by the indicated scribe, (Sophy Umana Scribe) and accurately reflects the services I performed and decisions made by me, Eliecer Freedman MD, as attested by the provider's signature.
== END 2017-03-25 16:45 ==
LOC: P.ED 16:24 → 3S 20:59 → SUATTDRO 21:47 → 3S 03-16 00:01 → ICU 03-18 18:43 → 3S 03-23 16:23
PROVIDERS: ATTEND Internal Medicine